=== PATIENT | female | born 1965 | race Caucasian/White ===

== ENCOUNTER → 2016-10-25 | Outpatient (CLI) | payer MEDICARE, OTHER ==
--- NOTE | 2016-10-26 08:53 | NM ---
EXAMINATION TYPE: NM hepatobiliary w EF DATE OF EXAM: 10/25/2016 5:05 PM COMPARISON: NONE INDICATION: Right upper quadrant pain TECHNIQUE: After the intravenous administration of 4.9 mCi Tc 99m Mebrofenin hepatobiliary scintigrap hy is performed. Images were obtained immediately post injection. FINDINGS: There is prompt uptake and excretion of radiotracer by the liver. Extrahepatic ducts are identified at 9 minutes. The gallbladder is visualized within 9 minutes. Small bowel activity is noted within 47 minutes. At one hour 8 ounces of oral ensure plus is given to mimic CCK and gallbladder ejection fraction is c alculated at 51 %, which is in the normal range. (Normal is >35% and less than 80%.). IMPRESSION: 1. Normal hepatobiliary scan
== END | disposition home or self-care (01) ==
LOC: RADNMMAIN 13:06
PROVIDERS: ATTEND Family Medicine
DX: R10.11 Right upper quadrant pain (principal)
CPT/HCPCS: 78226; A9537

== ENCOUNTER 2017-07-04 17:42 | Inpatient (IN) | payer MEDICARE, OTHER ==
[2017-07-04] MEDS ORDERED: ONDANSETRON 4 MG/2 ML VIAL IVP STA (18:14)
[2017-07-04] MEDS ORDERED: MORPHINE SULFATE 4 MG/ML SYRINGE IV STA (18:14)
[2017-07-04] MEDS ORDERED: NITROGLYCERIN OINT 1 INCH/GM PACKET TOPICAL STA (18:14)
[2017-07-04] MEDS ORDERED: MORPHINE SULFATE 2 MG/ML SYRINGE IVP ONE (18:30)
[2017-07-04 18:33] LABS: Anisocytosis Slight; Basophils # (A) 0.1 k/uL (0-0.2); Basophils % (A) 1 %; CH 33.2; CHCM 30.1; Eosinophils # (A) 0.1 k/uL (0-0.7); Eosinophils % (A) 1 %; HCT 31.1 % (34.0-46.0); HDW 2.64; HGB 9.4 gm/dL (11.4-16.0); Hypochromasia Marked; Luc % (Auto) 2; Lymphocytes # (A) 1.6 k/uL (1.0-4.8); Lymphocytes % (A) 27 %; MCH 33.8 pg (25.0-35.0); MCHC 30.3 g/dL (31.0-37.0); MCV 111.4 fL (80.0-100.0); Macrocytosis Marked; Mean Platelet Volume 7.7; Monocytes # (A) 0.3 k/uL (0-1.0); Monocytes % (A) 4 %; Neutrophils # (A) 3.9 k/uL (1.3-7.7); Neutrophils % (A) 66 %; RBC 2.79 m/uL (3.80-5.40); RDW 17.7 % (11.5-15.5); WBC (Perox) 6.25
[2017-07-04 18:38] LABS: Calcium 7.1 mg/dL (8.4-10.2); Potassium 4.4 mmol/L (3.5-5.1); Total Bilirubin 0.2 mg/dL (0.2-1.3); Total Protein 5.3 g/dL (6.3-8.2)
[2017-07-04 18:41] LABS: Partial Thromboplastin Time 22.9 sec (22.0-30.0)
[2017-07-04 18:48] LABS: Creatine Kinase 63 U/L (30-135)
[2017-07-04 18:50] LABS: Manual Review Performed
--- NOTE | 2017-07-04 19:00 | XR ---
EXAMINATION TYPE: XR chest 2V DATE OF EXAM: 07/04/2017 COMPARISON: EXAMINATION TYPE: XR chest 2V DATE OF EXAM: 07/04/2017 COMPARISON: NONE HISTORY: Fluid overload. Chest pain TECHNIQUE: 2 views FINDINGS: There is blunting of left costophrenic angle. There is no heart failure. There is dual lume n right central venous catheter with the tip over the superior vena cava. There is no pneumothorax. T here are chest leads. IMPRESSION: Mild left pleural effusion. No gross heart failure. Normal heart.
[2017-07-04 19:02] LABS: Creatine Kinase MB 1.8 ng/mL (0.0-2.4); Troponin I <0.012 ng/mL (0.000-0.034)
--- NOTE | 2017-07-04 21:18 | ED ---
General Adult HPI - General Chief complaint: Recheck/Abnormal Lab/Rx Stated complaint: Fluid Retention Time Seen by Provider: 07/04/17 18:02 Source: EMS Mode of arrival: EMS Limitations: no limitations - History of Present Illness Initial comments: She has end-stage renal disease, she had her dialysis today she is feeling that or swelling in her arms and legs is more pronounced today she is also complaining about shortness of breath. She is saying she has BEEN off and on for month chest pain gets worse when she takes a deep breath. Denies any fever no chills she is not coughing up any phlegm - Related Data Home Medications Medication Instructions Recorded Confirmed Gabapentin [Neurontin] 300 mg PO BID 06/08/16 07/04/17 Amino Acids/Protein Hydrolys 30 ml PO BID 07/04/17 07/04/17 [Pro-Stat Supplement] Apixaban [Eliquis] 5 mg PO BID 07/04/17 07/04/17 Famotidine 20 mg PO DAILY 07/04/17 07/04/17 Furosemide [Lasix] 80 mg PO TID 07/04/17 07/04/17 INSULIN LISPRO (HumaLOG) [HumaLOG] 8 unit SQ TID 07/04/17 07/04/17 Insulin Detemir [Levemir] 16 unit SQ DAILY 07/04/17 07/04/17 Levothyroxine Sodium [Synthroid] 200 mcg PO DAILY 07/04/17 07/04/17 Loperamide HCl [Loperamide] 2 mg PO Q6H PRN 07/04/17 07/04/17 Metolazone [Zaroxolyn] 5 mg PO DAILY 07/04/17 07/04/17 Metoprolol Tartrate [Lopressor] 25 mg PO BID 07/04/17 07/04/17 Ondansetron HCl [Zofran] 4 mg PO Q6H PRN 07/04/17 07/04/17 Potassium Chloride ER [K-Dur 20] 20 meq PO DAILY 07/04/17 07/04/17 Sodium Bicarbonate 650 mg PO BID 07/04/17 07/04/17 Vitamin B Complex 1 cap PO DAILY 07/04/17 07/04/17 Allergies Allergy/AdvReac Type Severity Reaction Status Date / Time lactose Allergy Nausea & Verified 07/04/17 19:21 Vomiting latex Allergy Rash/Hives Verified 07/04/17 19:21 Review of Systems ROS Statement: Those systems with pertinent positive or pertinent negative responses have been documented in the HPI. ROS Other: All systems not noted in ROS Statement are negative. Past Medical History Past Medical History: Diabetes Mellitus, GERD/Reflux, Hyperlipidemia, Hypertension, Renal Disease, Thyroid Disorder Additional Past Medical History / Comment(s): CURRENT: VOMITING, DIARRHEA, UNABLE TO EAT. INSULIN PUMP. STAGE 4 RENAL DISEASE. DIABETIC NEUROPATHY, BLURRED VISION. ANEMIA. History of Any Multi-Drug Resistant Organisms: None Reported Past Surgical History: Bariatric Surgery, Section, Hysterectomy, Tonsillectomy Additional Past Surgical History / Comment(s): GASTRIC BYPASS. Past Anesthesia/Blood Transfusion Reactions: No Reported Reaction Past Psychological History: Depression Smoking Status: Former smoker Past Alcohol Use History: None Reported Past Drug Use History: None Reported General Exam - General Exam Comments Initial Comments: General: The patient is awake and alert, in no distress, and does appear pale and tired Skin: Skin is warm and dry and no rashes or much she has multiple bruises on the forearms Eye: Pupils are equal, round and reactive to light, extra-ocular movements are intact; there is normal conjunctiva bilaterally. Ears, nose, mouth and throat: There are moist mucous membranes and no oral lesions. Neck: The neck is supple, there is no tenderness or JVD. Cardiovascular: There is a regular rate and rhythm. No murmur, rub or gallop is appreciated. Respiratory: To auscultation bilateral, crease breath sounds at the bases Gastrointestinal: Fairly tender in right upper quadrant area and epigastric area Back: There is no tenderness to palpation in the midline. There is no obvious deformity. Musculoskeletal: Has a diffuse edema of the lower extremity bilateral Neurological: CN II-XII intact, Cranial nerves III through XII are intact. There are no obvious motor or sensory deficits. Coordination appears grossly intact. Speech is normal. Psychiatric: Cooperative, appropriate mood & affect, normal judgment. Limitations: no limitations Course Vital Signs 07/04/17 07/04/17 07/04/17 17:44 18:34 19:20 Temperature 98.2 F 97.7 F Pulse Rate 75 72 65 Respiratory 18 18 18 Rate Blood Pressure 130/78 115/69 139/86 O2 Sat by Pulse 96 96 98 Oximetry 07/04/17 20:11 Temperature Pulse Rate 75 Respiratory 18 Rate Blood Pressure 127/82 O2 Sat by Pulse 96 Oximetry EKG Findings - EKG Comments: EKG Findings:: EKG is normal sinus rhythm ventricular rate is 65 [place] interval is 142 QRS duration is 80 QT/QTc is 428/445-50 mL EKG does not reveal any ST elevation or ST depression Medical Decision Making - Lab Data Result diagrams: 07/04/17 18:08 07/04/17 18:08 Lab Results 07/04/17 07/04/17 07/04/17 Range/Units 18:08 18:08 18:08 WBC 6.0 (3.8-10.6) k/uL RBC 2.79 L (3.80-5.40) m/uL Hgb 9.4 L (11.4-16.0) gm/dL Hct 31.1 L (34.0-46.0) % MCV 111.4 H (80.0-100.0) fL MCH 33.8 (25.0-35.0) pg MCHC 30.3 L (31.0-37.0) g/dL RDW 17.7 H (11.5-15.5) % Plt Count 445 (150-450) k/uL Neutrophils % 66 % Lymphocytes % 27 % Monocytes % 4 % Eosinophils % 1 % Basophils % 1 % Neutrophils # 3.9 (1.3-7.7) k/uL Lymphocytes # 1.6 (1.0-4.8) k/uL Monocytes # 0.3 (0-1.0) k/uL Eosinophils # 0.1 (0-0.7) k/uL Basophils # 0.1 (0-0.2) k/uL Manual Slide Review Performed Hypochromasia Marked Poikilocytosis (manual Present Anisocytosis Slight Anisocytosis (manual) Present Macrocytosis Marked PT (9.0-12.0) sec INR (<1.2) APTT (22.0-30.0) sec D-Dimer (<0.60) mg/L FEU Sodium 133 L (137-145) mmol/L Potassium 4.4 (3.5-5.1) mmol/L Chloride 102 (98-107) mmol/L Carbon Dioxide 23 (22-30) mmol/L Anion Gap 8 mmol/L BUN 54 H (7-17) mg/dL Creatinine 2.34 H (0.52-1.04) mg/dL Est GFR (MDRD) Af Amer 27 (>60 ml/min/1.73 sqM) Est GFR (MDRD) Non-Af 22 (>60 ml/min/1.73 sqM) Glucose 73 L (74-99) mg/dL Calcium 7.1 L (8.4-10.2) mg/dL Magnesium 2.0 (1.6-2.3) mg/dL Total Bilirubin 0.2 (0.2-1.3) mg/dL AST 334 H (14-36) U/L ALT 171 H (9-52) U/L Alkaline Phosphatase 293 H (38-126) U/L Total Creatine Kinase 63 (30-135) U/L CK-MB (CK-2) 1.8 (0.0-2.4) ng/mL CK-MB (CK-2) Rel Index 2.9 Troponin I <0.012 (0.000-0.034) ng/mL Total Protein 5.3 L (6.3-8.2) g/dL Albumin 2.4 L (3.5-5.0) g/dL 07/04/17 Range/Units 18:08 WBC (3.8-10.6) k/uL RBC (3.80-5.40) m/uL Hgb (11.4-16.0) gm/dL Hct (34.0-46.0) % MCV (80.0-100.0) fL MCH (25.0-35.0) pg MCHC (31.0-37.0) g/dL RDW (11.5-15.5) % Plt Count (150-450) k/uL Neutrophils % % Lymphocytes % % Monocytes % % Eosinophils % % Basophils % % Neutrophils # (1.3-7.7) k/uL Lymphocytes # (1.0-4.8) k/uL Monocytes # (0-1.0) k/uL Eosinophils # (0-0.7) k/uL Basophils # (0-0.2) k/uL Manual Slide Review Hypochromasia Poikilocytosis (manual Anisocytosis Anisocytosis (manual) Macrocytosis PT 10.0 (9.0-12.0) sec INR 1.0 (<1.2) APTT 22.9 (22.0-30.0) sec D-Dimer 2.52 H (<0.60) mg/L FEU Sodium (137-145) mmol/L Potassium (3.5-5.1) mmol/L Chloride (98-107) mmol/L Carbon Dioxide (22-30) mmol/L Anion Gap mmol/L BUN (7-17) mg/dL Creatinine (0.52-1.04) mg/dL Est GFR (MDRD) Af Amer (>60 ml/min/1.73 sqM) Est GFR (MDRD) Non-Af (>60 ml/min/1.73 sqM) Glucose (74-99) mg/dL Calcium (8.4-10.2) mg/dL Magnesium (1.6-2.3) mg/dL Total Bilirubin (0.2-1.3) mg/dL AST (14-36) U/L ALT (9-52) U/L Alkaline Phosphatase (38-126) U/L Total Creatine Kinase (30-135) U/L CK-MB (CK-2) (0.0-2.4) ng/mL CK-MB (CK-2) Rel Index Troponin I (0.000-0.034) ng/mL Total Protein (6.3-8.2) g/dL Albumin (3.5-5.0) g/dL Disposition Clinical Impression: End-stage renal disease, Pedal edema, Elevated d-dimer Disposition: ADMITTED IP TO THIS HOSP Condition: Fair Referrals: Ernst Gipson MD [Primary Care Provider] - 1-2 days
[2017-07-04] MEDS ORDERED: NALOXONE 0.4 MG/ML 1 ML VIAL IV PRN (22:00)
[2017-07-04] MEDS ORDERED: ACETAMINOPHEN TAB 325 MG TAB PO PRN (22:00)
[2017-07-04] MEDS ORDERED: LOPERAMIDE 2 MG CAP PO PRN (22:04)
[2017-07-04] MEDS: HYDROmorphone 0.5 MG/0.5 ML SYRINGE IVP PRN (22:20)
--- NOTE | 2017-07-04 22:55 | US ---
EXAMINATION TYPE: US abdomen limited DATE OF EXAM: 07/04/2017 COMPARISON: NONE CLINICAL HISTORY: Pain. RUQ pain elevated LFTS EXAM MEASUREMENTS: Liver Length: 18.1 cm Gallbladder Wall: 0.22 cm CBD: 0.43 cm Right Kidney: 9.2 x 4.7 x 4.2 cm Pancreas: Tail obscured by overlying bowel gas Liver: Heterogenous lobulated Gallbladder: wnl Evidence for sonographic Sprague's sign: No CBD: wnl Right Kidney: No hydronephrosis or masses seen IMPRESSION: No gallstones or dilated ducts. No focal liver defect. Right kidney shows no sign of hydr onephrosis.
[2017-07-05] MEDS: HYDROmorphone 0.5 MG/0.5 ML SYRINGE IVP PRN ×3 (06:26→21:09)
[2017-07-05] MEDS: INSULIN LISPRO (humaLOG) 300 UNIT/3 ML VIAL SQ SCH ×6 (07:50→21:08)
[2017-07-05 07:52] LABS: Glucose,Whole Blood 314 mg/dL (75-99)
[2017-07-05] MEDS ORDERED: NON-FORMULARY DRUG (Amino Acids/Protein Hydrolys [Pro-Stat Supplement] 30 ML) PO SCH (09:00)
[2017-07-05 09:21] LABS: Anisocytosis Slight; CH 33.6; CHCM 29.6; HCT 31.5 % (34.0-46.0); HDW 2.62; HGB 9.1 gm/dL (11.4-16.0); Hypochromasia Marked; MCHC 28.9 g/dL (31.0-37.0); MCV 114.5 fL (80.0-100.0); Macrocytosis Marked; Mean Platelet Volume 8.3; RBC 2.75 m/uL (3.80-5.40); WBC 7.9 k/uL (3.8-10.6)
[2017-07-05 09:28] LABS: ALT 163 U/L (9-52); AST 292 U/L (14-36); Alkaline Phosphatase 293 U/L (38-126); Anion Gap 15 mmol/L; Blood Urea Nitrogen 59 mg/dL (7-17); Carbon Dioxide 17 mmol/L (22-30); Chloride 99 mmol/L (98-107); Glucose 378 mg/dL (74-99); Non-African American GFR(MDRD) 20 (>60 ml/min/1.73 sqM); Potassium 4.6 mmol/L (3.5-5.1); Sodium 131 mmol/L (137-145); Total Bilirubin <0.1 mg/dL (0.2-1.3); Total Protein 5.2 g/dL (6.3-8.2)
[2017-07-05] MEDS: INSULIN DETEMIR 100 UNIT/ML 10 ML VIAL SQ SCH (10:09)
[2017-07-05 10:44] VITALS: BMI 27.6
[2017-07-05] MEDS: HYDROcodone/APAP 10-325MG 1 EACH TAB PO PRN (11:05)
[2017-07-05] MEDS: SODIUM BICARBONATE TAB 650 MG TAB PO SCH ×2 (11:06→21:08)
[2017-07-05] MEDS: METOPROLOL TARTRATE 25 MG TAB PO SCH ×2 (11:06→22:32)
[2017-07-05] MEDS: METOLAZONE 5 MG TAB PO SCH (11:07)
[2017-07-05] MEDS: APIXABAN 5 MG TAB PO SCH ×2 (11:07→21:04)
[2017-07-05] MEDS: B COMPLEX-VIT C-VIT E-ZINC 1 EACH TAB PO SCH (11:07)
[2017-07-05] MEDS: GABAPENTIN 300 MG CAP PO SCH ×2 (11:07→21:04)
[2017-07-05] MEDS: FUROSEMIDE 80 MG TAB PO SCH ×3 (11:07→21:05)
[2017-07-05] MEDS: LEVOTHYROXINE 100 MCG TAB PO SCH (11:07)
[2017-07-05 11:26] LABS: Glucose,Whole Blood 266 mg/dL (75-99)
[2017-07-05] MEDS: FAMOTIDINE 20 MG TAB PO SCH (12:28)
[2017-07-05] MEDS: POTASSIUM CHLORIDE ER 20 MEQ TAB.ER PO SCH (12:28)
[2017-07-05 13:31] LABS: Hemoglobin A1C 5.5 % (4.2-6.1)
[2017-07-05] MEDS ORDERED: HEPARIN SODIUM,PORCINE 5,000 UNIT/ML 1 ML VIAL ONE (16:05)
[2017-07-05] MEDS ORDERED: DEXTROSE 50%-WATER 50 ML SYRINGE IVP ONE (16:45)
[2017-07-05 16:47] LABS: Glucose,Whole Blood 34 mg/dL (75-99)
[2017-07-05 17:17] LABS: Glucose,Whole Blood 109 mg/dL (75-99)
--- NOTE | 2017-07-05 17:37 | P.HPIM ---
History of Present Illness H&P Date: 07/05/17 Chief Complaint: anasarca with significant weight gain. This is a 51-year-old female patient of mine with past medical history of end-stage renal disease on dialysis 3 times weekly, Tuesday and Tuesday, diabetes mellitus, diabetic neuropathy, hypertension and hypertensive cardiovascular disease, hyperlipidemia, hypothyroidism, morbid obesity status post gastric bypass, depression, was recently diagnosed of having a right leg DVT that was diagnosed at [facility] back in 06/19/2017 after she was admitted to the hospital because of weight gain and pleural effusion patient at that time started on Eliquis 5 mg orally twice every day along with a VQ scan that did not show any evidence of acute pulmonary embolism, patient subsequent he was sent to [facility] the [place] for physical therapy rehabilitation, however the patient was not getting appropriate fluid restriction and she continued to gain a lot of weight over the last few weeks while she was there she was seen by nephrology as an outpatient was recommended for her to go for dialysis on a daily basis until she get dialyzed at least 4 L daily basis, however her dialysis center only strictly does Tuesday and they are in the process of transfer the patient to [facility] for dialysis on a daily basis for at least getting her back to her dry weight. Patient presented to the emergency department at [facility] yesterday because of increased anasarca with increased weight gain that has significantly gone up since she was discharged from [facility] and the patient was seen in consultation by nephrology was recommended for the patient to go on dialysis on a daily basis for the next week. Review of Systems Constitutional: Reports anorexia, Reports chronic pain, Reports fatigue, Reports lethargy, Reports weakness, Reports weight gain, Denies chronic headaches Eyes: denies blurred vision, denies bulging eye, denies decreased vision Ears: deny: decreased hearing Ears, nose, mouth and throat: Denies dysphagia, Denies neck lump, Denies swelling in throat, Denies sore throat Cardiovascular: Reports decreased exercise tolerance, Reports dyspnea on exertion, Reports edema, Reports high blood pressure, Reports shortness of breath, Denies chest pain, Denies paroxysmal nocturnal dyspnea, Denies rapid heart beat, Denies syncope Respiratory: Reports cough with sputum, Reports dyspnea, Reports home oxygen, Denies congestion, Denies cough, Denies sleep apnea, Denies snoring, Denies wheezing Gastrointestinal: Reports bloating, Reports nausea, Denies abdominal pain, Denies BRBPR, Denies heartburn, Denies hematemesis, Denies melena, Denies vomiting Genitourinary: Denies dysuria, Denies hematuria Musculoskeletal: Reports gait dysfunction, Denies myalgias Musculoskeletal: bilateral: ankle swelling, elbow swelling, foot swelling, hand swelling, hip swelling, absent: ankle pain, ankle stiffness, elbow pain, elbow stiffness, foot pain, foot stiffness, hand pain, hand stiffness, hip pain, hip stiffness, knee pain, knee stiffness, knee swelling, shoulder pain, shoulder stiffness, shoulder swelling, wrist pain, wrist stiffness, wrist swelling Integumentary: Reports unusual bruising Neurological: Reports gait dysfunction, Reports numbness, Reports weakness Psychiatric: Reports anxiety, Reports depression, Denies sadness/tearfulness, Denies sleep disturbances, Denies suicidal ideation Endocrine: Denies fatigue, Denies weight change Past Medical History Past Medical History: COPD, Diabetes Mellitus, GERD/Reflux, Hyperlipidemia, Hypertension, Liver Disease, Osteoarthritis (OA), Renal Disease, Thyroid Disorder Additional Past Medical History / Comment(s): CURRENT: VOMITING, DIARRHEA, UNABLE TO EAT. INSULIN PUMP. STAGE 4 RENAL DISEASE. DIABETIC NEUROPATHY, BLURRED VISION. ANEMIA. Secondary hyperparathyroidism, hypothyroidism, hyperlipidemia, hypertension and hypertensive cardiovascular disease, end-stage renal disease on hemodialysis, peptic ulcer disease status post partial gastrectomy. 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 Singh in [place]. Past Anesthesia/Blood Transfusion Reactions: No Reported Reaction Past Psychological History: Depression Smoking Status: Former smoker (patient smokes about a pack every day since she was 18-year-old and she quit degenerative 19.) Past Alcohol Use History: None Reported Additional Past Alcohol Use History / Comment(s): SMOKED MANY YEARS, LESS THAN HALF PPD. Past Drug Use History: None Reported - Past Family History Mother Family Medical History: COPD, Hypertension, Renal Disease, Rheumatoid Arthritis (RA) (mother is 89-year-old with history of hypertension, COPD, rheumatoid arthritis.) Father Family Medical History: Cancer, COPD (father at age of 55 from COPD as well as adenocarcinoma.) Brother(s) Family Medical History: No Reported History (patient has one brother who is a nurse in [place].) Daughter(s) Family Medical History: No Reported History (patient has a daughter no major medical problems.) Son(s) Family Medical History: No Reported History (patient has a son no major medical problems.) Medications and Allergies Home Medications Medication Instructions Recorded Confirmed Type Gabapentin [Neurontin] 300 mg PO BID 06/08/16 07/04/17 History Amino Acids/Protein Hydrolys 30 ml PO BID 07/04/17 07/04/17 History [Pro-Stat Supplement] Apixaban [Eliquis] 5 mg PO BID 07/04/17 07/04/17 History Famotidine 20 mg PO DAILY 07/04/17 07/04/17 History Furosemide [Lasix] 80 mg PO TID 07/04/17 07/04/17 History INSULIN LISPRO (HumaLOG) [HumaLOG] 8 unit SQ TID 07/04/17 07/04/17 History Insulin Detemir [Levemir] 16 unit SQ DAILY 07/04/17 07/04/17 History Levothyroxine Sodium [Synthroid] 200 mcg PO DAILY 07/04/17 07/04/17 History Loperamide HCl [Loperamide] 2 mg PO Q6H PRN 07/04/17 07/04/17 History Metolazone [Zaroxolyn] 5 mg PO DAILY 07/04/17 07/04/17 History Metoprolol Tartrate [Lopressor] 25 mg PO BID 07/04/17 07/04/17 History Ondansetron HCl [Zofran] 4 mg PO Q6H PRN 07/04/17 07/04/17 History Potassium Chloride ER [K-Dur 20] 20 meq PO DAILY 07/04/17 07/04/17 History Sodium Bicarbonate 650 mg PO BID 07/04/17 07/04/17 History Vitamin B Complex 1 cap PO DAILY 07/04/17 07/04/17 History Allergies Allergy/AdvReac Type Severity Reaction Status Date / Time latex Allergy Rash/Hives Verified 07/04/17 19:21 Physical Exam Vitals: Vital Signs Temp Pulse Pulse Resp BP BP Pulse Ox 07/05/17 07:57 64 18 07/05/17 07:00 98.3 F 64 18 162/91 98 07/04/17 23:34 98.4 F 18 171/92 100 07/04/17 22:22 68 18 132/76 99 07/04/17 21:41 60 18 121/66 99 07/04/17 20:11 75 18 127/82 96 07/04/17 19:20 97.7 F 65 18 139/86 98 07/04/17 18:34 72 18 115/69 96 07/04/17 17:44 98.2 F 75 18 130/78 96 Intake and Output 07/04/17 07/05/17 07/05/17 22:59 06:59 14:59 Other: Voiding Method Toilet Toilet # Voids 2 1 Weight 80.3 kg 75.5 kg 75.5 kg Patient Weight 07/06/17 06:59 Weight 75.5 kg - Constitutional General appearance: average body habitus, mild distress - EENT Eyes: anicteric sclerae, EOMI, PERRLA, no ptosis, no scleral icterus, normal appearance ENT: hearing grossly normal, NA/AT, normal oropharynx, no thrush Ears: bilateral: normal - Neck Neck: no lymphadenopathy, normal ROM, no rigidity, no stridor, no thyromegaly Carotids: bilateral: upstroke normal Thyroid: bilateral: normal size - Respiratory Respiratory: bilateral: diminished, rhonchi, prolonged expiration, negative: dullness, rales, wheezing - Cardiovascular Rhythm: regular Heart sounds: normal: S1, S2 Abnormal Heart Sounds: systolic murmur, no rub, S3 Gallop, no click - Gastrointestinal General gastrointestinal: normal bowel sounds, soft, no splenomegaly, no tenderness, no umbilical hernia, no ventral hernia - Integumentary Integumentary: normal, normal turgor - Neurologic Neurologic: CNII-XII intact - Musculoskeletal Musculoskeletal: generalized weakness - Psychiatric Psychiatric: A&O x's 3, appropriate affect, intact judgment & insight Results CBC & Chem 7: 07/05/17 08:55 07/05/17 08:55 Labs: Abnormal Lab Results - Last 24 Hours (Table) 07/04/17 07/04/17 07/04/17 Range/Units 18:08 18:08 18:08 RBC 2.79 L (3.80-5.40) m/uL Hgb 9.4 L (11.4-16.0) gm/dL Hct 31.1 L (34.0-46.0) % MCV 111.4 H (80.0-100.0) fL MCHC 30.3 L (31.0-37.0) g/dL RDW 17.7 H (11.5-15.5) % D-Dimer 2.52 H (<0.60) mg/L FEU Sodium 133 L (137-145) mmol/L Carbon Dioxide (22-30) mmol/L BUN 54 H (7-17) mg/dL Creatinine 2.34 H (0.52-1.04) mg/dL Glucose 73 L (74-99) mg/dL POC Glucose (mg/dL) (75-99) mg/dL Calcium 7.1 L (8.4-10.2) mg/dL Total Bilirubin (0.2-1.3) mg/dL AST 334 H (14-36) U/L ALT 171 H (9-52) U/L Alkaline Phosphatase 293 H (38-126) U/L Total Protein 5.3 L (6.3-8.2) g/dL Albumin 2.4 L (3.5-5.0) g/dL 07/05/17 07/05/17 07/05/17 Range/Units 07:37 08:55 08:55 RBC 2.75 L (3.80-5.40) m/uL Hgb 9.1 L (11.4-16.0) gm/dL Hct 31.5 L (34.0-46.0) % MCV 114.5 H (80.0-100.0) fL MCHC 28.9 L (31.0-37.0) g/dL RDW 18.0 H (11.5-15.5) % D-Dimer (<0.60) mg/L FEU Sodium 131 L (137-145) mmol/L Carbon Dioxide 17 L (22-30) mmol/L BUN 59 H (7-17) mg/dL Creatinine 2.60 H (0.52-1.04) mg/dL Glucose 378 H (74-99) mg/dL POC Glucose (mg/dL) 314 H (75-99) mg/dL Calcium 7.0 L (8.4-10.2) mg/dL Total Bilirubin <0.1 L (0.2-1.3) mg/dL AST 292 H (14-36) U/L ALT 163 H (9-52) U/L Alkaline Phosphatase 293 H (38-126) U/L Total Protein 5.2 L (6.3-8.2) g/dL Albumin 2.4 L (3.5-5.0) g/dL 07/05/17 Range/Units 11:15 RBC (3.80-5.40) m/uL Hgb (11.4-16.0) gm/dL Hct (34.0-46.0) % MCV (80.0-100.0) fL MCHC (31.0-37.0) g/dL RDW (11.5-15.5) % D-Dimer (<0.60) mg/L FEU Sodium (137-145) mmol/L Carbon Dioxide (22-30) mmol/L BUN (7-17) mg/dL Creatinine (0.52-1.04) mg/dL Glucose (74-99) mg/dL POC Glucose (mg/dL) 266 H (75-99) mg/dL Calcium (8.4-10.2) mg/dL Total Bilirubin (0.2-1.3) mg/dL AST (14-36) U/L ALT (9-52) U/L Alkaline Phosphatase (38-126) U/L Total Protein (6.3-8.2) g/dL Albumin (3.5-5.0) g/dL Thrombosis Risk Factor Assmnt - DVT/VTE Prophylaxis DVT/VTE Prophylaxis: Pharmacologic Prophylaxis ordered, Mechanical Prophylaxis ordered - Choose All That Apply Each Factor Represents 1 point: Age 41-60 years, Swollen legs (current), Varicose veins Thrombosis Risk Factor Assessment Total Risk Factor Score: 3 Thrombosis Risk Factor Assessment Level: Moderate Risk Assessment and Plan Plan: Assessment and plan: 1. Anasarca with acute on chronic diastolic heart failure with significant fluid overload. Continue hemodialysis, continue patient on Lasix 80 mg orally twice every day, continue Zaroxolyn 5 mg orally once every day, monitor the patient's electrolytes and regular basis since including magnesium Tanner monitor the patient with, continue fluid restriction, patient will continue dialysis on a daily basis for the next few days. 2. Recent right lower extremity DVT. Continue Eliquis 5 mg orally twice every day. 3. History of the chronic diastolic heart failure. Continue treatment as in paragraph #1 4. Diabetes mellitus type 2. Continue Levemir 16 units at bedtime along with a sliding scale insulin, continue consistent carbohydrate diet, continue to monitor the patient blood glucose before each meal and at bedtime. 5. Diabetic polyneuropathy. Continue patient on gabapentin 300 mg orally twice every day. 6. Hypothyroidism. Continue levothyroxine 200 mg orally once every day. 7. Vitamin D deficiency. Continue patient on vitamin D supplement. 8. Hypertension and hypertensive cardiovascular disease. Continue patient on Lopressor 25 mg orally twice every day. 9. Secondary hyperparathyroidism. Stable at this time. 10. Moderate to severe protein calorie medication. Continue with current protein supplement. 11. Anxiety disorder. Stable. 12. Depressive disorder. Patient will need to be started on antidepressant. 13. Medical debility. Physical therapy evaluation patient will require physical therapy and outpatient therapy. 14. Chronic diarrhea. Continue patient on Questran and loperamide as needed. 15. DVT prophylaxis. Continue Eliquis 5 mg orally twice every day. 16. GI prophylaxis. Continue Pepcid 20 mg orally once every day. 17. Hyponatremia secondary to hypervolemia. Continue aggressive diuresis and daily hemodialysis. 18. Full code 19. Admit to inpatient. Estimated length of stay 2 midnights.
[2017-07-05] MEDS ORDERED: DARBEPOETIN ALFA 40 MCG/0.4 ML SYRINGE SQ SCH (19:30)
[2017-07-05 20:00] LABS: Hepatitis B Surface Antibody Non-Reactive (Non-Reactive)
[2017-07-05 20:35] LABS: Glucose,Whole Blood 74 mg/dL (75-99)
--- NOTE | 2017-07-05 21:04 | CONS ---
CONSULTATION DATE OF SERVICE: Today, 07/05/2017. REASON FOR CONSULT: End-stage renal disease. HISTORY OF PRESENT ILLNESS: Patient is a 51-year-old female with end-stage renal disease, on hemodialysis on a Tuesday, Tuesday, Tuesday schedule at the [facility]. She was admitted to the hospital with increased lower extremity edema and weeping from her arms. The patient is unable to go for extra treatments, since at the [facility], there is only a Tuesday, Tuesday, Tuesday schedule. The patient denies any chest pain. She denies any fever or chills. She has had some cough on and off and she has had multiple admissions at the [facility] for of fluid retention and worsening edema. PAST MEDICAL HISTORY: Type 2 diabetes, hyperlipidemia, hypertension, end-stage renal disease, retinopathy. PAST SURGICAL HISTORY: Bariatric surgery, , hysterectomy, tonsillectomy, gastric bypass, depression. SOCIAL HISTORY: Patient is an ex-smoker. No history of drug abuse or alcohol abuse. She was at [facility] and patient hopes to go home after this discharge. MEDICATIONS: Prior to admission included: 1. Neurontin. 2. Eliquis. 3. Pepcid. 4. Lasix. 5. Insulin. 6. Synthroid. 7. Zaroxolyn. 8. Lopressor. 9. Zofran. 10.Potassium. 11.Sodium bicarb. 12.Vitamin B. ALLERGIES: INCLUDE LACTOSE AND LATEX. REVIEW OF SYSTEMS: As per HPI. Other systems negative. EXAMINATION: Patient is comfortable, awake. She is not in any acute distress. Blood pressure is 125/82, heart rate 76 per minute. Patient is afebrile. HEART: S1, S2. LUNGS: Bilateral breath sounds are heard. ABDOMEN: Soft, nontender. Lower extremities show edema 3+ upper and lower extremities bilaterally. The patient has multiple dressings in both her upper extremities from wounds from weeping and scrapes. [employer]: Grossly intact. LABS: Showsodium 131, potassium 4.6. Hemoglobin 9.1 g/dL. ASSESSMENT: 1. End-stage renal disease, on hemodialysis on a Tuesday, Tuesday, Tuesday schedule at the [facility] via internal jugular PermCath. The patient does have a left arm arteriovenous fistula which is not ready for use yet. 2. Severe edema, upper and lower extremities. Will continue to challenge and dialyze patient on a daily basis. 3. Anemia of chronic disease. Will maintain patient on Aranesp. PLAN: Daily dialysis and add Aranesp and try for a goal UF of about 4 L with every treatment. MMODL / IJN: [id number] /
[2017-07-06 02:56] LABS: Glucose,Whole Blood 180 mg/dL (75-99)
[2017-07-06] MEDS: HYDROmorphone 0.5 MG/0.5 ML SYRINGE IVP PRN ×4 (04:41→21:32)
[2017-07-06 07:17] LABS: Glucose,Whole Blood 242 mg/dL (75-99)
[2017-07-06] MEDS: POTASSIUM CHLORIDE ER 20 MEQ TAB.ER PO SCH (08:03)
[2017-07-06] MEDS: LEVOTHYROXINE 100 MCG TAB PO SCH (08:03)
[2017-07-06] MEDS: METOLAZONE 5 MG TAB PO SCH (08:03)
[2017-07-06] MEDS: METOPROLOL TARTRATE 25 MG TAB PO SCH ×2 (08:03→21:27)
[2017-07-06] MEDS: B COMPLEX-VIT C-VIT E-ZINC 1 EACH TAB PO SCH (08:03)
[2017-07-06] MEDS: SODIUM BICARBONATE TAB 650 MG TAB PO SCH (08:03)
[2017-07-06] MEDS: APIXABAN 5 MG TAB PO SCH ×2 (08:03→21:27)
[2017-07-06] MEDS: GABAPENTIN 300 MG CAP PO SCH ×2 (08:03→21:26)
[2017-07-06] MEDS: FAMOTIDINE 20 MG TAB PO SCH (08:03)
[2017-07-06] MEDS: FUROSEMIDE 80 MG TAB PO SCH ×3 (08:03→21:27)
[2017-07-06] MEDS: INSULIN LISPRO (humaLOG) 300 UNIT/3 ML VIAL SQ SCH ×5 (08:08→21:22)
[2017-07-06] MEDS: INSULIN DETEMIR 100 UNIT/ML 10 ML VIAL SQ SCH (08:16)
[2017-07-06 08:27] LABS: Anisocytosis Slight; CH 33.3; CHCM 29.1; HDW 2.52; HGB 8.6 gm/dL (11.4-16.0); Hypochromasia Marked; MCHC 28.7 g/dL (31.0-37.0); MCV 115.2 fL (80.0-100.0); Macrocytosis Marked; Mean Platelet Volume 7.7; RBC 2.61 m/uL (3.80-5.40); RDW 17.1 % (11.5-15.5)
[2017-07-06 08:36] LABS: Calcium 6.7 mg/dL (8.4-10.2); Potassium 5.2 mmol/L (3.5-5.1); Total Bilirubin 0.1 mg/dL (0.2-1.3); Total Protein 4.8 g/dL (6.3-8.2)
[2017-07-06 11:41] LABS: Glucose,Whole Blood 226 mg/dL (75-99)
[2017-07-06] MEDS: AMMONIUM LACTATE 12% LOTION 225 GM BTL TOPICAL SCH ×2 (12:05→21:27)
--- NOTE | 2017-07-06 12:34 | P.PN ---
Subjective Progress Note Date: 07/06/17 This is a 51-year-old female patient of [facility] with past medical history of end-stage renal disease on dialysis 3 times weekly, Tuesday and Tuesday, diabetes mellitus, diabetic neuropathy, hypertension and hypertensive cardiovascular disease, hyperlipidemia, hypothyroidism, morbid obesity status post gastric bypass, depression, was recently diagnosed of having a right leg DVT that was diagnosed at [facility] back in 06/19/2017 after she was admitted to the hospital because of weight gain and pleural effusion patient at that time started on Eliquis 5 mg orally twice every day along with a VQ scan that did not show any evidence of acute pulmonary embolism, patient subsequent he was sent to [facility] [place] for physical therapy rehabilitation, however the patient was not getting appropriate fluid restriction and she continued to gain a lot of weight over the last few weeks while she was there she was seen by nephrology as an outpatient was recommended for her to go for dialysis on a daily basis until she get dialyzed at least 4 L daily basis, however her dialysis center only strictly does Tuesday and they are in the process of transfer the patient to [place] for dialysis on a daily basis for at least getting her back to her dry weight. Patient presented to the emergency department at [facility] yesterday because of increased anasarca with increased weight gain that has significantly gone up since she was discharged from [facility] and the patient was seen in consultation by nephrology was recommended for the patient to go on dialysis on a daily basis for the next week. 07/06: Patient is followed by nephrology and for now, hemodialysis as scheduled daily. Lac-Hydrin will be added for dry legs and feet. Patient is requesting Tums. Objective - Vital Signs Vital signs: Vital Signs Temp 97.7 F 07/06/17 07:00 Pulse 67 07/06/17 07:00 Resp 16 07/06/17 07:00 BP 174/91 07/06/17 07:00 Pulse Ox 97 07/06/17 07:00 Intake & Output 07/05/17 07/06/17 07/06/17 18:59 06:59 18:59 Intake Total 60 350 Balance 60 350 Weight 75.5 kg Intake: Oral 60 350 Other: Voiding Method Toilet Toilet # Voids 0 0 - Exam General appearance: average body habitus, mild distress - EENT Eyes: anicteric sclerae, EOMI, PERRLA, no ptosis, no scleral icterus, normal appearance ENT: hearing grossly normal, NA/AT, normal oropharynx, no thrush Ears: bilateral: normal - Neck Neck: no lymphadenopathy, normal ROM, no rigidity, no stridor, no thyromegaly Carotids: bilateral: upstroke normal Thyroid: bilateral: normal size - Respiratory Respiratory: bilateral: diminished, rhonchi, prolonged expiration, negative: dullness, rales, wheezing - Cardiovascular Rhythm: regular Heart sounds: normal: S1, S2 Abnormal Heart Sounds: systolic murmur, no rub, S3 Gallop, no click - Gastrointestinal General gastrointestinal: normal bowel sounds, soft, no splenomegaly, no tenderness, no umbilical hernia, no ventral hernia - Integumentary Integumentary: normal, normal turgor - Neurologic Neurologic: CNII-XII intact - Musculoskeletal Musculoskeletal: generalized weakness - Psychiatric Psychiatric: A&O x's 3, appropriate affect, intact judgment & insight - Labs CBC & Chem 7: 07/06/17 07:22 07/06/17 07:22 Labs: Abnormal Lab Results - Last 24 Hours (Table) 07/05/17 07/05/17 07/05/17 Range/Units 08:55 08:55 11:15 RBC 2.75 L (3.80-5.40) m/uL Hgb 9.1 L (11.4-16.0) gm/dL Hct 31.5 L (34.0-46.0) % MCV 114.5 H (80.0-100.0) fL MCHC 28.9 L (31.0-37.0) g/dL RDW 18.0 H (11.5-15.5) % Sodium 131 L (137-145) mmol/L Carbon Dioxide 17 L (22-30) mmol/L BUN 59 H (7-17) mg/dL Creatinine 2.60 H (0.52-1.04) mg/dL Glucose 378 H (74-99) mg/dL POC Glucose (mg/dL) 266 H (75-99) mg/dL Calcium 7.0 L (8.4-10.2) mg/dL Total Bilirubin <0.1 L (0.2-1.3) mg/dL AST 292 H (14-36) U/L ALT 163 H (9-52) U/L Alkaline Phosphatase 293 H (38-126) U/L Total Protein 5.2 L (6.3-8.2) g/dL Albumin 2.4 L (3.5-5.0) g/dL 07/05/17 07/05/17 07/05/17 Range/Units 16:40 17:15 20:23 RBC (3.80-5.40) m/uL Hgb (11.4-16.0) gm/dL Hct (34.0-46.0) % MCV (80.0-100.0) fL MCHC (31.0-37.0) g/dL RDW (11.5-15.5) % Sodium (137-145) mmol/L Carbon Dioxide (22-30) mmol/L BUN (7-17) mg/dL Creatinine (0.52-1.04) mg/dL Glucose (74-99) mg/dL POC Glucose (mg/dL) 34 L 109 H 74 L (75-99) mg/dL Calcium (8.4-10.2) mg/dL Total Bilirubin (0.2-1.3) mg/dL AST (14-36) U/L ALT (9-52) U/L Alkaline Phosphatase (38-126) U/L Total Protein (6.3-8.2) g/dL Albumin (3.5-5.0) g/dL 07/06/17 07/06/17 Range/Units 02:33 06:55 RBC (3.80-5.40) m/uL Hgb (11.4-16.0) gm/dL Hct (34.0-46.0) % MCV (80.0-100.0) fL MCHC (31.0-37.0) g/dL RDW (11.5-15.5) % Sodium (137-145) mmol/L Carbon Dioxide (22-30) mmol/L BUN (7-17) mg/dL Creatinine (0.52-1.04) mg/dL Glucose (74-99) mg/dL POC Glucose (mg/dL) 180 H 242 H (75-99) mg/dL Calcium (8.4-10.2) mg/dL Total Bilirubin (0.2-1.3) mg/dL AST (14-36) U/L ALT (9-52) U/L Alkaline Phosphatase (38-126) U/L Total Protein (6.3-8.2) g/dL Albumin (3.5-5.0) g/dL Assessment and Plan Plan: 1. Anasarca with acute on chronic diastolic heart failure with significant fluid overload. Continue hemodialysis, continue patient on Lasix 80 mg orally twice every day, continue Zaroxolyn 5 mg orally once every day, monitor the patient's electrolytes and regular basis since including magnesium Tanner monitor the patient with, continue fluid restriction, patient will continue dialysis on a daily basis for the next few days. 2. Recent right lower extremity DVT. Continue Eliquis 5 mg orally twice every day. 3. History of the chronic diastolic heart failure. Continue treatment as in paragraph #1 4. Diabetes mellitus type 2. Continue Levemir 16 units at bedtime along with a sliding scale insulin, continue consistent carbohydrate diet, continue to monitor the patient blood glucose before each meal and at bedtime. 5. Diabetic polyneuropathy. Continue patient on gabapentin 300 mg orally twice every day. 6. Hypothyroidism. Continue levothyroxine 200 mg orally once every day. 7. Vitamin D deficiency. Continue patient on vitamin D supplement. 8. Hypertension and hypertensive cardiovascular disease. Continue patient on Lopressor 25 mg orally twice every day. 9. Secondary hyperparathyroidism. Stable at this time. 10. Moderate to severe protein calorie medication. Continue with current protein supplement. 11. Anxiety disorder. Stable. 12. Depressive disorder. Patient will need to be started on antidepressant. 13. Medical debility. Physical therapy evaluation patient will require physical therapy and outpatient therapy. 14. Chronic diarrhea. Continue patient on Questran and loperamide as needed. 15. DVT prophylaxis. Continue Eliquis 5 mg orally twice every day. 16. GI prophylaxis. Continue Pepcid 20 mg orally once every day. 17. Hyponatremia secondary to hypervolemia. Continue aggressive diuresis and daily hemodialysis. 18. Full code Discharge plan: Patient is planning to go home versus back to the [facility]. She is in need of a hospital bed as positioning is not obtainable with an ordinary bed to alleviate pain and we are also planning to order a wheelchair for her. Case management is following. Impression and plan of care have been directed as dictated by the signing physician. Ave Jin nurse practitioner acting as scribe for signing physician.
--- NOTE | 2017-07-06 14:31 | PN ---
PROGRESS NOTE Patient is seen for followup for end-stage renal disease and fluid overload. She was dialyzed yesterday. We had about 4L of ultrafiltration yesterday. Patient will be dialyzed again today with goal UF of about 4 to 4.5 L. She states she is feeling slightly better. I do see a lot of water and juice sitting at her bedside. I have discussed with the patient regarding fluid restriction, particularly as she does not have significant urine output now. PHYSICAL EXAMINATION: On examination today, blood pressure is 174/91, earlier it was 138/78, heart rate 67 per minute. Patient is afebrile. Examination of the heart S1, S2. Examination of the lungs, decreased breath sounds bases. No crackles or wheezing is heard. Abdomen is soft, nontender. Examination of the lower extremity shows edema 3+ bilaterally upper and lower extremities. LABS: Sodium 128, potassium 5.2, hemoglobin 8.6, albumin 2.2. ASSESSMENT: 1. End-stage renal disease, on hemodialysis on a Tuesday, Tuesday, Tuesday schedule at the [facility]. The patient is looking into changing to the [facility] as she will not be going to [facility] anymore and wants to be discharged home. 2. Fluid overload and significant edema, currently on a daily schedule for dialysis. 3. Elevated liver enzymes, not on any statins. 4. Mild hyperkalemia. Will discontinue the potassium supplementation. 5. Anemia of chronic disease. No active bleeding noted. 6. A Port-A-Cath to obtained on oral sodium bicarb, which most likely we will need to discontinue as the patient has significant edema. We can increase the bicarb on the machine as outpatient to control her metabolic acidosis. PLAN: Continue daily dialysis/ultrafiltration. DC sodium bicarb and DC potassium. MMODL / IJN: [id number] /
[2017-07-06] MEDS ORDERED: FUROSEMIDE 10 MG/ML 10 ML VIAL IV STA (14:47)
[2017-07-06 15:53] LABS: Glucose,Whole Blood 74 mg/dL (75-99)
[2017-07-06 16:59] LABS: Glucose,Whole Blood 70 mg/dL (75-99)
[2017-07-06] MEDS: CALCIUM CARBONATE 500 MG CHEWABLE PO PRN (17:34)
[2017-07-06 20:46] LABS: Glucose,Whole Blood 106 mg/dL (75-99)
[2017-07-07] MEDS: HYDROmorphone 0.5 MG/0.5 ML SYRINGE IVP PRN ×5 (02:09→21:25)
[2017-07-07 07:32] LABS: Anisocytosis Slight; CH 34.5; CHCM 30.1; HCT 30.3 % (34.0-46.0); HDW 2.61; HGB 8.7 gm/dL (11.4-16.0); Hypochromasia Marked; MCH 33.3 pg (25.0-35.0); MCHC 28.8 g/dL (31.0-37.0); Macrocytosis Marked; Mean Platelet Volume 8.2; RBC 2.62 m/uL (3.80-5.40); RDW 17.6 % (11.5-15.5); WBC 4.8 k/uL (3.8-10.6)
[2017-07-07 07:32] LABS: Glucose,Whole Blood 395 mg/dL (75-99)
[2017-07-07 07:40] LABS: MCV 115.7 fL (80.0-100.0)
[2017-07-07] MEDS: INSULIN LISPRO (humaLOG) 300 UNIT/3 ML VIAL SQ SCH ×5 (07:43→21:28)
[2017-07-07] MEDS: INSULIN DETEMIR 100 UNIT/ML 10 ML VIAL SQ SCH (07:44)
[2017-07-07] MEDS: CALCIUM CARBONATE 500 MG CHEWABLE PO PRN (07:44)
[2017-07-07] MEDS: LEVOTHYROXINE 100 MCG TAB PO SCH (07:45)
[2017-07-07] MEDS: FUROSEMIDE 80 MG TAB PO SCH ×3 (07:49→21:28)
[2017-07-07] MEDS: B COMPLEX-VIT C-VIT E-ZINC 1 EACH TAB PO SCH (07:49)
[2017-07-07] MEDS: FAMOTIDINE 20 MG TAB PO SCH (07:50)
[2017-07-07] MEDS: GABAPENTIN 300 MG CAP PO SCH ×2 (07:50→21:27)
[2017-07-07] MEDS: METOPROLOL TARTRATE 25 MG TAB PO SCH ×2 (07:50→07:57)
[2017-07-07] MEDS: APIXABAN 5 MG TAB PO SCH ×2 (07:51→21:28)
[2017-07-07] MEDS: AMMONIUM LACTATE 12% LOTION 225 GM BTL TOPICAL SCH ×2 (07:56→21:28)
[2017-07-07 07:57] LABS: Calcium 6.9 mg/dL (8.4-10.2); Potassium 4.9 mmol/L (3.5-5.1); Total Bilirubin 0.2 mg/dL (0.2-1.3); Total Protein 4.8 g/dL (6.3-8.2)
[2017-07-07] MEDS: METOLAZONE 5 MG TAB PO SCH (07:57)
[2017-07-07] MEDS ORDERED: HEPARIN SODIUM,PORCINE 5,000 UNIT/ML 1 ML VIAL ONE (09:34)
--- NOTE | 2017-07-07 11:28 | P.PN ---
Subjective Patient is seen in follow-up for end-stage renal disease. She is maintained on hemodialysis on a Tuesday schedule via right chest permacath. She has a maturing left upper extremity AV fistula. Patient was complaining of significant swelling in her lower extremities and came to the hospital. She's been undergoing daily dialysis with 4 L of ultrafiltration. She's been tolerating the treatments well. Swelling is gradually improving. Oral intake is fair. No vomiting or diarrhea. Vital signs are stable. General: The patient appeared well nourished and normally developed. HEENT: Head exam is unremarkable. Neck is without jugular venous distension. LUNGS: Lungs are clear to auscultation and percussion. Breath sounds decreased. HEART: Rate and Rhythm are regular. First and second heart sounds normal. No murmurs, rubs or gallops. ABDOMEN: Abdominal exam reveals normal bowel sounds. Non-tender and non- distended. EXTREMITITES: 3+ edema. Objective - Vital Signs Vital signs: Vital Signs Temp 98.2 F 07/07/17 07:00 Pulse 63 07/07/17 08:00 Resp 18 07/07/17 08:00 BP 150/80 07/07/17 07:00 Pulse Ox 95 07/07/17 07:00 Intake & Output 07/06/17 07/07/17 07/07/17 18:59 06:59 18:59 Intake Total 240 Output Total 1 Balance 240 -1 Weight 73.5 kg Intake: Oral 240 Output: Stool 1 Other: Voiding Method Toilet Toilet Toilet # Voids 3 2 # Bowel Movements 1 - Labs CBC & Chem 7: 07/07/17 07:04 07/07/17 07:04 Labs: Abnormal Lab Results - Last 24 Hours (Table) 07/06/17 07/06/17 07/06/17 Range/Units 11:14 15:52 16:58 RBC (3.80-5.40) m/uL Hgb (11.4-16.0) gm/dL Hct (34.0-46.0) % MCV (80.0-100.0) fL MCHC (31.0-37.0) g/dL RDW (11.5-15.5) % Sodium (137-145) mmol/L BUN (7-17) mg/dL Creatinine (0.52-1.04) mg/dL Glucose (74-99) mg/dL POC Glucose (mg/dL) 226 H 74 L 70 L (75-99) mg/dL Calcium (8.4-10.2) mg/dL AST (14-36) U/L ALT (9-52) U/L Alkaline Phosphatase (38-126) U/L Total Protein (6.3-8.2) g/dL Albumin (3.5-5.0) g/dL 07/06/17 07/07/17 07/07/17 Range/Units 20:44 07:01 07:04 RBC 2.62 L (3.80-5.40) m/uL Hgb 8.7 L (11.4-16.0) gm/dL Hct 30.3 L (34.0-46.0) % MCV 115.7 H (80.0-100.0) fL MCHC 28.8 L (31.0-37.0) g/dL RDW 17.6 H (11.5-15.5) % Sodium (137-145) mmol/L BUN (7-17) mg/dL Creatinine (0.52-1.04) mg/dL Glucose (74-99) mg/dL POC Glucose (mg/dL) 106 H 395 H (75-99) mg/dL Calcium (8.4-10.2) mg/dL AST (14-36) U/L ALT (9-52) U/L Alkaline Phosphatase (38-126) U/L Total Protein (6.3-8.2) g/dL Albumin (3.5-5.0) g/dL 07/07/17 Range/Units 07:04 RBC (3.80-5.40) m/uL Hgb (11.4-16.0) gm/dL Hct (34.0-46.0) % MCV (80.0-100.0) fL MCHC (31.0-37.0) g/dL RDW (11.5-15.5) % Sodium 129 L (137-145) mmol/L BUN 48 H (7-17) mg/dL Creatinine 2.39 H (0.52-1.04) mg/dL Glucose 446 H (74-99) mg/dL POC Glucose (mg/dL) (75-99) mg/dL Calcium 6.9 L (8.4-10.2) mg/dL AST 586 H (14-36) U/L ALT 232 H (9-52) U/L Alkaline Phosphatase 366 H (38-126) U/L Total Protein 4.8 L (6.3-8.2) g/dL Albumin 2.2 L (3.5-5.0) g/dL Assessment and Plan Plan: Assessment: #1. End-stage renal disease maintained on hemodialysis on a Tuesday schedule via right chest permacath. She has a maturing left upper extremity AV fistula. #2. Volume overload undergoing daily dialysis with ultrafiltration. #3. Hypocalcemia secondary to hypoalbuminemia. Her corrected calcium is in the normal range. #4. Insulin-dependent diabetes mellitus. #5. Anemia of chronic kidney disease maintained on Aranesp. #6. Chronic kidney disease mineral bone disease maintained on Tums. Plan: Ultrafiltration only today with goal 5 L. Hemodialysis tomorrow with goal 4-5 L ultrafiltration. Potential discharge tomorrow if outpatient dialysis at the [place] [facility] set up. Check phosphorus level. Maintain low salt and fluid restricted diet.
[2017-07-07 11:35] LABS: Glucose,Whole Blood 234 mg/dL (75-99)
--- NOTE | 2017-07-07 12:20 | P.PN ---
Subjective Progress Note Date: 07/07/17 This is a 51-year-old female patient of [facility] with past medical history of end-stage renal disease on dialysis 3 times weekly, Tuesday and Tuesday, diabetes mellitus, diabetic neuropathy, hypertension and hypertensive cardiovascular disease, hyperlipidemia, hypothyroidism, morbid obesity status post gastric bypass, depression, was recently diagnosed of having a right leg DVT that was diagnosed at [facility] back in 06/19/2017 after she was admitted to the hospital because of weight gain and pleural effusion patient at that time started on Eliquis 5 mg orally twice every day along with a VQ scan that did not show any evidence of acute pulmonary embolism, patient subsequent he was sent to [facility] the [place] for physical therapy rehabilitation, however the patient was not getting appropriate fluid restriction and she continued to gain a lot of weight over the last few weeks while she was there she was seen by nephrology as an outpatient was recommended for her to go for dialysis on a daily basis until she get dialyzed at least 4 L daily basis, however her dialysis center only strictly does Tuesday and they are in the process of transfer the patient to [place] for dialysis on a daily basis for at least getting her back to her dry weight. Patient presented to the emergency department at [facility] yesterday because of increased anasarca with increased weight gain that has significantly gone up since she was discharged from [facility] and the patient was seen in consultation by nephrology was recommended for the patient to go on dialysis on a daily basis for the next week. 07/06: Patient is followed by nephrology and for now, hemodialysis as scheduled daily. Lac-Hydrin will be added for dry legs and feet. Patient is requesting Tums. 07/07: Patient is undergoing hemodialysis this morning. She is complaining of pain with urination for which a urinalysis and urine culture will be ordered. She also complains pain in her back. At this time, discharge may occur tomorrow if the [place] dialysis center has a Tuesday opening for her to start there. manager housekeeping is following closely to make arrangements. Objective - Vital Signs Vital signs: Vital Signs Temp 98.2 F 07/07/17 07:00 Pulse 63 07/07/17 07:00 Resp 18 07/07/17 07:00 BP 150/80 07/07/17 07:00 Pulse Ox 95 07/07/17 07:00 Intake & Output 07/06/17 07/07/17 07/07/17 18:59 06:59 18:59 Intake Total 240 Output Total 1 Balance 240 -1 Weight 73.5 kg Intake: Oral 240 Output: Stool 1 Other: Voiding Method Toilet Toilet # Voids 3 2 # Bowel Movements 1 - Exam General appearance: average body habitus, mild distress - EENT Eyes: anicteric sclerae, EOMI, PERRLA, no ptosis, no scleral icterus, normal appearance ENT: hearing grossly normal, NA/AT, normal oropharynx, no thrush Ears: bilateral: normal - Neck Neck: no lymphadenopathy, normal ROM, no rigidity, no stridor, no thyromegaly Carotids: bilateral: upstroke normal Thyroid: bilateral: normal size - Respiratory Respiratory: bilateral: diminished, rhonchi, prolonged expiration, negative: dullness, rales, wheezing - Cardiovascular Rhythm: regular Heart sounds: normal: S1, S2 Abnormal Heart Sounds: systolic murmur, no rub, S3 Gallop, no click - Gastrointestinal General gastrointestinal: normal bowel sounds, soft, no splenomegaly, no tenderness, no umbilical hernia, no ventral hernia - Integumentary Integumentary: normal, normal turgor - Neurologic Neurologic: CNII-XII intact - Musculoskeletal Musculoskeletal: generalized weakness - Psychiatric Psychiatric: A&O x's 3, appropriate affect, intact judgment & insight - Labs CBC & Chem 7: 07/07/17 07:04 07/07/17 07:04 Labs: Abnormal Lab Results - Last 24 Hours (Table) 07/06/17 07/06/17 07/06/17 Range/Units 07:22 07:22 11:14 RBC 2.61 L (3.80-5.40) m/uL Hgb 8.6 L (11.4-16.0) gm/dL Hct 30.0 L (34.0-46.0) % MCV 115.2 H (80.0-100.0) fL MCHC 28.7 L (31.0-37.0) g/dL RDW 17.1 H (11.5-15.5) % Sodium 128 L (137-145) mmol/L Potassium 5.2 H (3.5-5.1) mmol/L BUN 57 H (7-17) mg/dL Creatinine 2.63 H (0.52-1.04) mg/dL Glucose 243 H (74-99) mg/dL POC Glucose (mg/dL) 226 H (75-99) mg/dL Calcium 6.7 L (8.4-10.2) mg/dL Total Bilirubin 0.1 L (0.2-1.3) mg/dL AST 235 H (14-36) U/L ALT 145 H (9-52) U/L Alkaline Phosphatase 254 H (38-126) U/L Total Protein 4.8 L (6.3-8.2) g/dL Albumin 2.2 L (3.5-5.0) g/dL 07/06/17 07/06/17 07/06/17 Range/Units 15:52 16:58 20:44 RBC (3.80-5.40) m/uL Hgb (11.4-16.0) gm/dL Hct (34.0-46.0) % MCV (80.0-100.0) fL MCHC (31.0-37.0) g/dL RDW (11.5-15.5) % Sodium (137-145) mmol/L Potassium (3.5-5.1) mmol/L BUN (7-17) mg/dL Creatinine (0.52-1.04) mg/dL Glucose (74-99) mg/dL POC Glucose (mg/dL) 74 L 70 L 106 H (75-99) mg/dL Calcium (8.4-10.2) mg/dL Total Bilirubin (0.2-1.3) mg/dL AST (14-36) U/L ALT (9-52) U/L Alkaline Phosphatase (38-126) U/L Total Protein (6.3-8.2) g/dL Albumin (3.5-5.0) g/dL 07/07/17 07/07/17 07/07/17 Range/Units 07:01 07:04 07:04 RBC 2.62 L (3.80-5.40) m/uL Hgb 8.7 L (11.4-16.0) gm/dL Hct 30.3 L (34.0-46.0) % MCV 115.7 H (80.0-100.0) fL MCHC 28.8 L (31.0-37.0) g/dL RDW 17.6 H (11.5-15.5) % Sodium 129 L (137-145) mmol/L Potassium (3.5-5.1) mmol/L BUN 48 H (7-17) mg/dL Creatinine 2.39 H (0.52-1.04) mg/dL Glucose 446 H (74-99) mg/dL POC Glucose (mg/dL) 395 H (75-99) mg/dL Calcium 6.9 L (8.4-10.2) mg/dL Total Bilirubin (0.2-1.3) mg/dL AST 586 H (14-36) U/L ALT 232 H (9-52) U/L Alkaline Phosphatase 366 H (38-126) U/L Total Protein 4.8 L (6.3-8.2) g/dL Albumin 2.2 L (3.5-5.0) g/dL Assessment and Plan Plan: 1. Anasarca with acute on chronic diastolic heart failure with significant fluid overload. Continue hemodialysis, continue patient on Lasix 80 mg orally twice every day, continue Zaroxolyn 5 mg orally once every day, monitor the patient's electrolytes and regular basis since including magnesium Tanner monitor the patient with, continue fluid restriction, patient will continue dialysis on a daily basis for the next few days. 2. Recent right lower extremity DVT. Continue Eliquis 5 mg orally twice every day. 3. History of the chronic diastolic heart failure. Continue treatment as in paragraph #1 4. Diabetes mellitus type 2. Continue Levemir 16 units at bedtime along with a sliding scale insulin, continue consistent carbohydrate diet, continue to monitor the patient blood glucose before each meal and at bedtime. 5. Diabetic polyneuropathy. Continue patient on gabapentin 300 mg orally twice every day. 6. Hypothyroidism. Continue levothyroxine 200 mg orally once every day. 7. Vitamin D deficiency. Continue patient on vitamin D supplement. 8. Hypertension and hypertensive cardiovascular disease. Continue patient on Lopressor 25 mg orally twice every day. 9. Secondary hyperparathyroidism. Stable at this time. 10. Moderate to severe protein calorie medication. Continue with current protein supplement. 11. Anxiety disorder. Stable. 12. Depressive disorder. Patient will need to be started on antidepressant. 13. Medical debility. Physical therapy evaluation patient will require physical therapy and outpatient therapy. 14. Chronic diarrhea. Continue patient on Questran and loperamide as needed. 15. DVT prophylaxis. Continue Eliquis 5 mg orally twice every day. 16. GI prophylaxis. Continue Pepcid 20 mg orally once every day. 17. Hyponatremia secondary to hypervolemia. Continue aggressive diuresis and daily hemodialysis. 18. Full code Discharge plan: Patient is planning to go home versus back to the [facility]. She is in need of a hospital bed as positioning is not obtainable with an ordinary bed to alleviate pain and we are also planning to order a wheelchair for her. Case management is following and will make sure patient has an appointment at the [place] dialysis center for Tuesday prior to discharge.. Impression and plan of care have been directed as dictated by the signing physician. Ave Jin nurse practitioner acting as scribe for signing physician.
[2017-07-07] MEDS: ONDANSETRON 4 MG/2 ML VIAL IVP PRN (14:49)
[2017-07-07 16:08] LABS: Appearance,Urine Cloudy (Clear); Bilirubin,Urine 1+ (Negative); Glucose,Urine (UA) 2+ (Negative); Ketones,Urine Negative (Negative); Leukocyte Esterase,Urine Negative (Negative); Nitrite,Urine Negative (Negative); PH, Urine 5.5 (5.0-8.0); Particle Count 6643; Protein,Urine 3+ (Negative); Specific Gravity,Urine 1.015 (1.001-1.035); Squamous Epithelial Cell,Urine 2 /hpf (0-4); UA Billing (MACRO vs. MICRO) MICRO; WBC,Urine 3 /hpf (0-5)
[2017-07-07 17:04] LABS: Glucose,Whole Blood 39 mg/dL (75-99)
[2017-07-07 17:26] LABS: Glucose,Whole Blood 51 mg/dL (75-99)
[2017-07-07 17:26] LABS: Glucose,Whole Blood 73 mg/dL (75-99)
[2017-07-07] MEDS ORDERED: INSULIN LISPRO (humaLOG) 300 UNIT/3 ML VIAL SQ SCH (17:33)
[2017-07-07 21:16] LABS: Glucose,Whole Blood 58 mg/dL (75-99)
[2017-07-07 21:16] LABS: Glucose,Whole Blood 70 mg/dL (75-99)
[2017-07-07 21:55] LABS: Glucose,Whole Blood 180 mg/dL (75-99)
[2017-07-07 21:55] LABS: Glucose,Whole Blood 229 mg/dL (75-99)
[2017-07-08] MEDS: HYDROmorphone 0.5 MG/0.5 ML SYRINGE IVP PRN ×6 (02:34→21:31)
[2017-07-08] MEDS: INSULIN LISPRO (humaLOG) 300 UNIT/3 ML VIAL SQ SCH ×7 (07:42→20:29)
[2017-07-08 07:43] LABS: Glucose,Whole Blood 405 mg/dL (75-99)
[2017-07-08] MEDS: INSULIN DETEMIR 100 UNIT/ML 10 ML VIAL SQ SCH (07:54)
[2017-07-08 08:14] LABS: Anisocytosis Slight; CH 33.8; CHCM 30.1; HCT 31.9 % (34.0-46.0); HDW 2.53; HGB 9.3 gm/dL (11.4-16.0); Hypochromasia Marked; MCH 33.1 pg (25.0-35.0); MCHC 29.2 g/dL (31.0-37.0); MCV 113.4 fL (80.0-100.0); Macrocytosis Marked; Mean Platelet Volume 8.2; RBC 2.81 m/uL (3.80-5.40); RDW 17.2 % (11.5-15.5); WBC 6.6 k/uL (3.8-10.6)
[2017-07-08 08:24] LABS: Calcium 7.5 mg/dL (8.4-10.2); Potassium 3.7 mmol/L (3.5-5.1); Total Bilirubin 0.2 mg/dL (0.2-1.3); Total Protein 5.6 g/dL (6.3-8.2)
[2017-07-08] MEDS: METOPROLOL TARTRATE 25 MG TAB PO SCH ×2 (09:35→20:23)
[2017-07-08] MEDS: FUROSEMIDE 80 MG TAB PO SCH ×3 (09:35→21:32)
[2017-07-08] MEDS: APIXABAN 5 MG TAB PO SCH ×2 (09:35→20:23)
[2017-07-08] MEDS: B COMPLEX-VIT C-VIT E-ZINC 1 EACH TAB PO SCH (09:35)
[2017-07-08] MEDS: GABAPENTIN 300 MG CAP PO SCH ×2 (09:35→20:23)
[2017-07-08] MEDS: METOLAZONE 5 MG TAB PO SCH (09:35)
[2017-07-08] MEDS: LEVOTHYROXINE 100 MCG TAB PO SCH (09:35)
[2017-07-08] MEDS: FAMOTIDINE 20 MG TAB PO SCH (09:35)
[2017-07-08] MEDS: AMMONIUM LACTATE 12% LOTION 225 GM BTL TOPICAL SCH ×2 (09:36→20:23)
[2017-07-08] MEDS ORDERED: FLUCONAZOLE 150 MG TAB PO STA (10:04)
[2017-07-08 11:56] LABS: Glucose,Whole Blood 177 mg/dL (75-99)
--- NOTE | 2017-07-08 12:47 | P.PN ---
Subjective Patient is seen in follow-up for end-stage renal disease. She is maintained on hemodialysis on a Tuesday schedule via right chest permacath. She has a maturing left upper extremity AV fistula. Patient was complaining of significant swelling in her lower extremities and came to the hospital. She's been undergoing daily dialysis with 4-5 L of ultrafiltration. She's been tolerating the treatments well. Swelling is gradually improving. Oral intake is fair. No vomiting or diarrhea. No active complaints at this time. Vital signs are stable. General: The patient appeared well nourished and normally developed. HEENT: Head exam is unremarkable. Neck is without jugular venous distension. LUNGS: Lungs are clear to auscultation and percussion. Breath sounds decreased. HEART: Rate and Rhythm are regular. First and second heart sounds normal. No murmurs, rubs or gallops. ABDOMEN: Abdominal exam reveals normal bowel sounds. Non-tender and non- distended. EXTREMITITES: 2+ edema. Objective - Vital Signs Vital signs: Vital Signs Temp 98.2 F 07/08/17 07:00 Pulse 64 07/08/17 08:00 Resp 18 07/08/17 08:00 BP 154/82 07/08/17 07:00 Pulse Ox 94 L 07/08/17 07:00 Intake & Output 07/07/17 07/08/17 07/08/17 18:59 06:59 18:59 Intake Total 600 Output Total 1 1 Balance 599 -1 Weight 71 kg Intake: Oral 600 Output: Stool 1 1 Other: Voiding Method Toilet Toilet Toilet # Voids 2 1 # Bowel Movements 1 - Labs CBC & Chem 7: 07/08/17 07:35 07/08/17 07:35 Labs: Abnormal Lab Results - Last 24 Hours (Table) 07/07/17 07/07/17 07/07/17 Range/Units 15:10 16:53 17:07 RBC (3.80-5.40) m/uL Hgb (11.4-16.0) gm/dL Hct (34.0-46.0) % MCV (80.0-100.0) fL MCHC (31.0-37.0) g/dL RDW (11.5-15.5) % Sodium (137-145) mmol/L Chloride (98-107) mmol/L BUN (7-17) mg/dL Creatinine (0.52-1.04) mg/dL Glucose (74-99) mg/dL POC Glucose (mg/dL) 39 L 51 L (75-99) mg/dL Calcium (8.4-10.2) mg/dL AST (14-36) U/L ALT (9-52) U/L Alkaline Phosphatase (38-126) U/L Total Protein (6.3-8.2) g/dL Albumin (3.5-5.0) g/dL Urine Appearance Cloudy H (Clear) Urine Protein 3+ H (Negative) Urine Glucose (UA) 2+ H (Negative) Urine Bilirubin 1+ H (Negative) Hyaline Casts 9 H (0-2) /lpf 07/07/17 07/07/17 07/07/17 Range/Units 17:17 20:21 20:42 RBC (3.80-5.40) m/uL Hgb (11.4-16.0) gm/dL Hct (34.0-46.0) % MCV (80.0-100.0) fL MCHC (31.0-37.0) g/dL RDW (11.5-15.5) % Sodium (137-145) mmol/L Chloride (98-107) mmol/L BUN (7-17) mg/dL Creatinine (0.52-1.04) mg/dL Glucose (74-99) mg/dL POC Glucose (mg/dL) 73 L 58 L 70 L (75-99) mg/dL Calcium (8.4-10.2) mg/dL AST (14-36) U/L ALT (9-52) U/L Alkaline Phosphatase (38-126) U/L Total Protein (6.3-8.2) g/dL Albumin (3.5-5.0) g/dL Urine Appearance (Clear) Urine Protein (Negative) Urine Glucose (UA) (Negative) Urine Bilirubin (Negative) Hyaline Casts (0-2) /lpf 07/07/17 07/07/17 07/08/17 Range/Units 21:52 21:53 07:17 RBC (3.80-5.40) m/uL Hgb (11.4-16.0) gm/dL Hct (34.0-46.0) % MCV (80.0-100.0) fL MCHC (31.0-37.0) g/dL RDW (11.5-15.5) % Sodium (137-145) mmol/L Chloride (98-107) mmol/L BUN (7-17) mg/dL Creatinine (0.52-1.04) mg/dL Glucose (74-99) mg/dL POC Glucose (mg/dL) 229 H 180 H 405 H (75-99) mg/dL Calcium (8.4-10.2) mg/dL AST (14-36) U/L ALT (9-52) U/L Alkaline Phosphatase (38-126) U/L Total Protein (6.3-8.2) g/dL Albumin (3.5-5.0) g/dL Urine Appearance (Clear) Urine Protein (Negative) Urine Glucose (UA) (Negative) Urine Bilirubin (Negative) Hyaline Casts (0-2) /lpf 07/08/17 07/08/17 07/08/17 Range/Units 07:35 07:35 11:21 RBC 2.81 L (3.80-5.40) m/uL Hgb 9.3 L (11.4-16.0) gm/dL Hct 31.9 L (34.0-46.0) % MCV 113.4 H (80.0-100.0) fL MCHC 29.2 L (31.0-37.0) g/dL RDW 17.2 H (11.5-15.5) % Sodium 130 L (137-145) mmol/L Chloride 96 L (98-107) mmol/L BUN 27 H (7-17) mg/dL Creatinine 1.56 H (0.52-1.04) mg/dL Glucose 339 H (74-99) mg/dL POC Glucose (mg/dL) 177 H (75-99) mg/dL Calcium 7.5 L (8.4-10.2) mg/dL AST 295 H (14-36) U/L ALT 231 H (9-52) U/L Alkaline Phosphatase 421 H (38-126) U/L Total Protein 5.6 L (6.3-8.2) g/dL Albumin 2.6 L (3.5-5.0) g/dL Urine Appearance (Clear) Urine Protein (Negative) Urine Glucose (UA) (Negative) Urine Bilirubin (Negative) Hyaline Casts (0-2) /lpf Microbiology - Last 24 Hours (Table) 07/07/17 15:10 Urine Culture - Preliminary Urine,Voided Assessment and Plan Plan: Assessment: #1. End-stage renal disease maintained on hemodialysis on a Tuesday schedule via right chest permacath. She has a maturing left upper extremity AV fistula. #2. Volume overload undergoing daily dialysis with ultrafiltration. #3. Hypocalcemia secondary to hypoalbuminemia. Her corrected calcium is in the normal range. #4. Insulin-dependent diabetes mellitus. #5. Anemia of chronic kidney disease maintained on Aranesp. #6. Chronic kidney disease mineral bone disease maintained on Tums. #7. Hypervolemic hyponatremia improving with ultrafiltration. Plan: Underwent hemodialysis today with goal 5 L UF- tolerated it well. Ultrafiltration only tomorrow. Potential discharge tomorrow if outpatient dialysis at the [facility] set up. Maintain low salt and fluid restricted diet.
[2017-07-08] MEDS: ONDANSETRON 4 MG/2 ML VIAL IVP PRN (13:08)
--- NOTE | 2017-07-08 13:38 | P.PN ---
Subjective Progress Note Date: 07/08/17 This is a 51-year-old female patient of [facility] with past medical history of end-stage renal disease on dialysis 3 times weekly, Tuesday and Tuesday, diabetes mellitus, diabetic neuropathy, hypertension and hypertensive cardiovascular disease, hyperlipidemia, hypothyroidism, morbid obesity status post gastric bypass, depression, was recently diagnosed of having a right leg DVT that was diagnosed at [facility] back in 06/19/2017 after she was admitted to the hospital because of weight gain and pleural effusion patient at that time started on Eliquis 5 mg orally twice every day along with a VQ scan that did not show any evidence of acute pulmonary embolism, patient subsequent he was sent to [facility] for physical therapy rehabilitation, however the patient was not getting appropriate fluid restriction and she continued to gain a lot of weight over the last few weeks while she was there she was seen by nephrology as an outpatient was recommended for her to go for dialysis on a daily basis until she get dialyzed at least 4 L daily basis, however her dialysis center only strictly does Tuesday and they are in the process of transfer the patient to [facility] for dialysis on a daily basis for at least getting her back to her dry weight. Patient presented to the emergency department at [facility] yesterday because of increased anasarca with increased weight gain that has significantly gone up since she was discharged from [facility] and the patient was seen in consultation by nephrology was recommended for the patient to go on dialysis on a daily basis for the next week. 07/06: Patient is followed by nephrology and for now, hemodialysis as scheduled daily. Lac-Hydrin will be added for dry legs and feet. Patient is requesting Tums. 07/07: Patient is undergoing hemodialysis this morning. She is complaining of pain with urination for which a urinalysis and urine culture will be ordered. She also complains pain in her back. At this time, discharge may occur tomorrow if the [facility] dialysis center has a Tuesday opening for her to start there. manager engagement is following closely to make arrangements. 07/08: Patient is scheduled for hemodialysis today. She is unable to be scheduled as an outpatient on Tuesday. Anticipate patient will stay over the weekend and be set up for her first or hearing dialysis on [place]. Patient had a drop in her blood sugar to 39 and Levemir was decreased to 12 units as well as Humalog was decreased to 3 units and this morning patient is 405. His blood sugars are lower this afternoon, may change Levemir to twice daily. Objective - Vital Signs Vital signs: Vital Signs Temp 98.2 F 07/08/17 07:00 Pulse 64 07/08/17 07:00 Resp 18 07/08/17 07:00 BP 154/82 07/08/17 07:00 Pulse Ox 94 L 07/08/17 07:00 Intake & Output 07/07/17 07/08/17 07/08/17 18:59 06:59 18:59 Intake Total 600 Output Total 1 Balance 599 Weight 71 kg Intake: Oral 600 Output: Stool 1 Other: Voiding Method Toilet Toilet # Voids 2 1 # Bowel Movements 1 - Exam General appearance: average body habitus, mild distress - EENT Eyes: anicteric sclerae, EOMI, PERRLA, no ptosis, no scleral icterus, normal appearance ENT: hearing grossly normal, NA/AT, normal oropharynx, no thrush Ears: bilateral: normal - Neck Neck: no lymphadenopathy, normal ROM, no rigidity, no stridor, no thyromegaly Carotids: bilateral: upstroke normal Thyroid: bilateral: normal size - Respiratory Respiratory: bilateral: diminished, rhonchi, prolonged expiration, negative: dullness, rales, wheezing - Cardiovascular Rhythm: regular Heart sounds: normal: S1, S2 Abnormal Heart Sounds: systolic murmur, no rub, S3 Gallop, no click - Gastrointestinal General gastrointestinal: normal bowel sounds, soft, no splenomegaly, no tenderness, no umbilical hernia, no ventral hernia - Integumentary Integumentary: normal, normal turgor - Neurologic Neurologic: CNII-XII intact - Musculoskeletal Musculoskeletal: generalized weakness - Psychiatric Psychiatric: A&O x's 3, appropriate affect, intact judgment & insight - Labs CBC & Chem 7: 07/08/17 07:35 07/08/17 07:35 Labs: Abnormal Lab Results - Last 24 Hours (Table) 07/07/17 07/07/17 07/07/17 Range/Units 07:04 11:16 15:10 RBC (3.80-5.40) m/uL Hgb (11.4-16.0) gm/dL Hct (34.0-46.0) % MCV (80.0-100.0) fL MCHC (31.0-37.0) g/dL RDW (11.5-15.5) % Sodium (137-145) mmol/L Chloride (98-107) mmol/L BUN (7-17) mg/dL Creatinine (0.52-1.04) mg/dL Glucose (74-99) mg/dL POC Glucose (mg/dL) 234 H (75-99) mg/dL Calcium (8.4-10.2) mg/dL Phosphorus 5.3 H (2.5-4.5) mg/dL AST (14-36) U/L ALT (9-52) U/L Alkaline Phosphatase (38-126) U/L Total Protein (6.3-8.2) g/dL Albumin (3.5-5.0) g/dL Urine Appearance Cloudy H (Clear) Urine Protein 3+ H (Negative) Urine Glucose (UA) 2+ H (Negative) Urine Bilirubin 1+ H (Negative) Hyaline Casts 9 H (0-2) /lpf 07/07/17 07/07/17 07/07/17 Range/Units 16:53 17:07 17:17 RBC (3.80-5.40) m/uL Hgb (11.4-16.0) gm/dL Hct (34.0-46.0) % MCV (80.0-100.0) fL MCHC (31.0-37.0) g/dL RDW (11.5-15.5) % Sodium (137-145) mmol/L Chloride (98-107) mmol/L BUN (7-17) mg/dL Creatinine (0.52-1.04) mg/dL Glucose (74-99) mg/dL POC Glucose (mg/dL) 39 L 51 L 73 L (75-99) mg/dL Calcium (8.4-10.2) mg/dL Phosphorus (2.5-4.5) mg/dL AST (14-36) U/L ALT (9-52) U/L Alkaline Phosphatase (38-126) U/L Total Protein (6.3-8.2) g/dL Albumin (3.5-5.0) g/dL Urine Appearance (Clear) Urine Protein (Negative) Urine Glucose (UA) (Negative) Urine Bilirubin (Negative) Hyaline Casts (0-2) /lpf 07/07/17 07/07/17 07/07/17 Range/Units 20:21 20:42 21:52 RBC (3.80-5.40) m/uL Hgb (11.4-16.0) gm/dL Hct (34.0-46.0) % MCV (80.0-100.0) fL MCHC (31.0-37.0) g/dL RDW (11.5-15.5) % Sodium (137-145) mmol/L Chloride (98-107) mmol/L BUN (7-17) mg/dL Creatinine (0.52-1.04) mg/dL Glucose (74-99) mg/dL POC Glucose (mg/dL) 58 L 70 L 229 H (75-99) mg/dL Calcium (8.4-10.2) mg/dL Phosphorus (2.5-4.5) mg/dL AST (14-36) U/L ALT (9-52) U/L Alkaline Phosphatase (38-126) U/L Total Protein (6.3-8.2) g/dL Albumin (3.5-5.0) g/dL Urine Appearance (Clear) Urine Protein (Negative) Urine Glucose (UA) (Negative) Urine Bilirubin (Negative) Hyaline Casts (0-2) /lpf 07/07/17 07/08/17 07/08/17 Range/Units 21:53 07:17 07:35 RBC 2.81 L (3.80-5.40) m/uL Hgb 9.3 L (11.4-16.0) gm/dL Hct 31.9 L (34.0-46.0) % MCV 113.4 H (80.0-100.0) fL MCHC 29.2 L (31.0-37.0) g/dL RDW 17.2 H (11.5-15.5) % Sodium (137-145) mmol/L Chloride (98-107) mmol/L BUN (7-17) mg/dL Creatinine (0.52-1.04) mg/dL Glucose (74-99) mg/dL POC Glucose (mg/dL) 180 H 405 H (75-99) mg/dL Calcium (8.4-10.2) mg/dL Phosphorus (2.5-4.5) mg/dL AST (14-36) U/L ALT (9-52) U/L Alkaline Phosphatase (38-126) U/L Total Protein (6.3-8.2) g/dL Albumin (3.5-5.0) g/dL Urine Appearance (Clear) Urine Protein (Negative) Urine Glucose (UA) (Negative) Urine Bilirubin (Negative) Hyaline Casts (0-2) /lpf 07/08/17 Range/Units 07:35 RBC (3.80-5.40) m/uL Hgb (11.4-16.0) gm/dL Hct (34.0-46.0) % MCV (80.0-100.0) fL MCHC (31.0-37.0) g/dL RDW (11.5-15.5) % Sodium 130 L (137-145) mmol/L Chloride 96 L (98-107) mmol/L BUN 27 H (7-17) mg/dL Creatinine 1.56 H (0.52-1.04) mg/dL Glucose 339 H (74-99) mg/dL POC Glucose (mg/dL) (75-99) mg/dL Calcium 7.5 L (8.4-10.2) mg/dL Phosphorus (2.5-4.5) mg/dL AST 295 H (14-36) U/L ALT 231 H (9-52) U/L Alkaline Phosphatase 421 H (38-126) U/L Total Protein 5.6 L (6.3-8.2) g/dL Albumin 2.6 L (3.5-5.0) g/dL Urine Appearance (Clear) Urine Protein (Negative) Urine Glucose (UA) (Negative) Urine Bilirubin (Negative) Hyaline Casts (0-2) /lpf Microbiology - Last 24 Hours (Table) 07/07/17 15:10 Urine Culture - Preliminary Urine,Voided Assessment and Plan Plan: 1. Anasarca with acute on chronic diastolic heart failure with significant fluid overload. Continue hemodialysis, continue patient on Lasix 80 mg orally three times every day, continue Zaroxolyn 5 mg orally once every day, monitor the patient's electrolytes and regular basis since including magnesium, continue fluid restriction, patient will continue dialysis per nephrology. 2. Recent right lower extremity DVT. Continue Eliquis 5 mg orally twice every day. 3. History of the chronic diastolic heart failure. Continue treatment as in paragraph #1 4. Diabetes mellitus type 2, insulin requiring, uncontrolled. Continue Levemir 12 units at bedtime along with Humalog 3 units with meals and a sliding scale insulin, continue consistent carbohydrate diet, continue to monitor the patient blood glucose before each meal and at bedtime. 5. Diabetic polyneuropathy. Continue patient on gabapentin 300 mg orally twice every day. 6. Hypothyroidism. Continue levothyroxine 200 mg orally once every day. 7. Vitamin D deficiency. Continue patient on vitamin D supplement. 8. Hypertension and hypertensive cardiovascular disease. Continue patient on Lopressor 25 mg orally twice every day. 9. Secondary hyperparathyroidism. Stable at this time. 10. Moderate to severe protein calorie medication. Continue with current protein supplement. 11. Anxiety disorder. Stable. 12. Depressive disorder. Patient will need to be started on antidepressant. 13. Medical debility. Physical therapy evaluation patient will require physical therapy and outpatient therapy. 14. Chronic diarrhea. Continue patient on Questran and loperamide as needed. 15. DVT prophylaxis. Continue Eliquis 5 mg orally twice every day. 16. GI prophylaxis. Continue Pepcid 20 mg orally once every day. 17. Hyponatremia secondary to hypervolemia. Continue aggressive diuresis and daily hemodialysis. 18. Full code Discharge plan: Patient is planning to go home versus back to the [facility]. She is in need of a hospital bed as positioning is not obtainable with an ordinary bed to alleviate pain and we are also planning to order a wheelchair for her. Impression and plan of care have been directed as dictated by the signing physician. Ave Jin nurse practitioner acting as scribe for signing physician.
[2017-07-08 14:24] LABS: Glucose,Whole Blood 89 mg/dL (75-99)
[2017-07-08 17:57] LABS: Glucose,Whole Blood 107 mg/dL (75-99)
[2017-07-08 20:31] LABS: Glucose,Whole Blood 233 mg/dL (75-99)
[2017-07-09] MEDS: HYDROmorphone 0.5 MG/0.5 ML SYRINGE IVP PRN ×4 (00:52→11:53)
[2017-07-09 07:46] LABS: Anisocytosis Slight; CH 33.1; CHCM 29.4; HCT 29.7 % (34.0-46.0); HDW 2.56; HGB 8.7 gm/dL (11.4-16.0); Hypochromasia Marked; MCHC 29.1 g/dL (31.0-37.0); Macrocytosis Marked; Mean Platelet Volume 7.8; RBC 2.62 m/uL (3.80-5.40); RDW 16.5 % (11.5-15.5); WBC 5.6 k/uL (3.8-10.6)
[2017-07-09 07:51] LABS: MCV 113.3 fL (80.0-100.0)
[2017-07-09 07:58] LABS: Calcium 7.4 mg/dL (8.4-10.2); Potassium 4.9 mmol/L (3.5-5.1); Total Bilirubin 0.2 mg/dL (0.2-1.3)
[2017-07-09 08:06] LABS: Glucose,Whole Blood 471 mg/dL (75-99)
[2017-07-09 08:06] LABS: Glucose,Whole Blood 488 mg/dL (75-99)
[2017-07-09] MEDS: INSULIN LISPRO (humaLOG) 300 UNIT/3 ML VIAL SQ SCH ×4 (08:15→11:58)
[2017-07-09] MEDS: FUROSEMIDE 80 MG TAB PO SCH (08:18)
[2017-07-09] MEDS: APIXABAN 5 MG TAB PO SCH (08:18)
[2017-07-09] MEDS: FAMOTIDINE 20 MG TAB PO SCH (08:18)
[2017-07-09] MEDS: B COMPLEX-VIT C-VIT E-ZINC 1 EACH TAB PO SCH (08:19)
[2017-07-09] MEDS: LEVOTHYROXINE 100 MCG TAB PO SCH (08:19)
[2017-07-09] MEDS: GABAPENTIN 300 MG CAP PO SCH (08:19)
[2017-07-09] MEDS: METOPROLOL TARTRATE 25 MG TAB PO SCH (08:20)
[2017-07-09] MEDS: AMMONIUM LACTATE 12% LOTION 225 GM BTL TOPICAL SCH (08:20)
[2017-07-09] MEDS: METOLAZONE 5 MG TAB PO SCH (08:21)
[2017-07-09] MEDS: INSULIN DETEMIR 100 UNIT/ML 10 ML VIAL SQ SCH (08:31)
[2017-07-09 09:00] VITALS: PULSE 64; RESP 18; TEMP 98.5
--- NOTE | 2017-07-09 10:02 | P.DS ---
Providers Date of admission: 07/04/17 22:00 Attending physician: Ernst Gipson Consults: 07/04/17 22:00 Consult Physician Stat Consulting Provider: Cathy Johnson Consult Reason/Comments: End-stage liver disease, pedal edema Do you want consulting provider notified?: Yes Primary care physician: Ernst Gipson Hospital Course: This is 51 years old female with past medical history significant for end-stage renal disease on hemodialysis presents to the hospital with worsening anasarca and fluid overloaded status. Patient felt to have diastolic heart failure exacerbation was started on aggressive dialysis course by nephrology and her fluid status improved. Patient was up ambulating in the guadarrama on her own without shortness of breath and tolerating diet without difficulty felt stable from the medical standpoint and was discharged home to follow-up with her primary care physician on Tuesday and with has dialysis scheduled for Tuesday and Tuesday plan discussed with the breakfast and room attendant at the bedside and both patient and breakfast and room attendant agreeable to the current treatment plan. Patient Condition at Discharge: Stable Plan - Discharge Summary New Discharge Prescriptions: No Action Gabapentin [Neurontin] 300 mg PO BID Loperamide HCl [Loperamide] 2 mg PO Q6H PRN PRN Reason: Diarrhea Furosemide [Lasix] 80 mg PO TID Sodium Bicarbonate 650 mg PO BID INSULIN LISPRO (HumaLOG) [HumaLOG] 8 unit SQ TID Amino Acids/Protein Hydrolys [Pro-Stat Supplement] 30 ml PO BID Metoprolol Tartrate [Lopressor] 25 mg PO BID Metolazone [Zaroxolyn] 5 mg PO DAILY Apixaban [Eliquis] 5 mg PO BID Potassium Chloride ER [K-Dur 20] 20 meq PO DAILY Levothyroxine Sodium [Synthroid] 200 mcg PO DAILY Vitamin B Complex 1 cap PO DAILY Insulin Detemir [Levemir] 16 unit SQ DAILY Famotidine 20 mg PO DAILY Ondansetron HCl [Zofran] 4 mg PO Q6H PRN PRN Reason: Nausea Discharge Medication List Gabapentin [Neurontin] 300 mg PO BID 06/08/16 [History] Amino Acids/Protein Hydrolys [Pro-Stat Supplement] 30 ml PO BID 07/04/17 [ History] Apixaban [Eliquis] 5 mg PO BID 07/04/17 [History] Famotidine 20 mg PO DAILY 07/04/17 [History] Furosemide [Lasix] 80 mg PO TID 07/04/17 [History] INSULIN LISPRO (HumaLOG) [HumaLOG] 8 unit SQ TID 07/04/17 [History] Insulin Detemir [Levemir] 16 unit SQ DAILY 07/04/17 [History] Levothyroxine Sodium [Synthroid] 200 mcg PO DAILY 07/04/17 [History] Loperamide HCl [Loperamide] 2 mg PO Q6H PRN 07/04/17 [History] Metolazone [Zaroxolyn] 5 mg PO DAILY 07/04/17 [History] Metoprolol Tartrate [Lopressor] 25 mg PO BID 07/04/17 [History] Ondansetron HCl [Zofran] 4 mg PO Q6H PRN 07/04/17 [History] Potassium Chloride ER [K-Dur 20] 20 meq PO DAILY 07/04/17 [History] Sodium Bicarbonate 650 mg PO BID 07/04/17 [History] Vitamin B Complex 1 cap PO DAILY 07/04/17 [History] Follow up Appointment(s)/Referral(s): Ernst Gipson MD [Primary Care Provider] - 1 Week Ayla Fry MD [STAFF PHYSICIAN] - 1 Week [facility] Visiting Nurse, [NON-STAFF] - 1 Week Activity/Diet/Wound Care/Special Instructions: [facility] - [phone] - will be delivering your equipment on Tuesday. Hemodialysis at [facility] - Tuesday, Tuesday, Tuesday 11:30 am. - Report at 11:00 a.m. on Wednesday 07/11.
[2017-07-09 11:07] VITALS: BP 131/76
--- NOTE | 2017-07-09 11:11 | P.PN ---
Subjective Patient is seen in follow-up for end-stage renal disease. She is maintained on hemodialysis on a Tuesday schedule via right chest permacath. She has a maturing left upper extremity AV fistula. Patient was complaining of significant swelling in her lower extremities and came to the hospital. She's been undergoing daily dialysis with 4-5 L of ultrafiltration. She's been tolerating the treatments well. Swelling is gradually improving. Oral intake is fair. No vomiting or diarrhea. she does admit to dysuria. Urine culture is positive for gram-negative bacilli. Vital signs are stable. General: The patient appeared well nourished and normally developed. HEENT: Head exam is unremarkable. Neck is without jugular venous distension. LUNGS: Lungs are clear to auscultation and percussion. Breath sounds decreased. HEART: Rate and Rhythm are regular. First and second heart sounds normal. No murmurs, rubs or gallops. ABDOMEN: Abdominal exam reveals normal bowel sounds. Non-tender and non- distended. EXTREMITITES: 2+ edema. Objective - Vital Signs Vital signs: Vital Signs Temp 98.5 F 07/09/17 07:00 Pulse 64 07/09/17 07:00 Resp 18 07/09/17 07:00 BP 131/76 07/09/17 10:20 Pulse Ox 97 07/09/17 07:00 Intake & Output 07/08/17 07/09/17 07/09/17 18:59 06:59 18:59 Intake Total 650 740 Output Total 3 2 Balance 647 738 Weight 71 kg 69.5 kg Intake: Oral 650 740 Output: Stool 3 2 Other: Voiding Method Toilet Toilet # Voids 2 0 - Labs CBC & Chem 7: 07/09/17 07:02 07/09/17 07:02 Labs: Abnormal Lab Results - Last 24 Hours (Table) 07/08/17 07/08/17 07/08/17 Range/Units 11:21 17:39 20:29 RBC (3.80-5.40) m/uL Hgb (11.4-16.0) gm/dL Hct (34.0-46.0) % MCV (80.0-100.0) fL MCHC (31.0-37.0) g/dL RDW (11.5-15.5) % Sodium (137-145) mmol/L Chloride (98-107) mmol/L Carbon Dioxide (22-30) mmol/L BUN (7-17) mg/dL Creatinine (0.52-1.04) mg/dL Glucose (74-99) mg/dL POC Glucose (mg/dL) 177 H 107 H 233 H (75-99) mg/dL Calcium (8.4-10.2) mg/dL AST (14-36) U/L ALT (9-52) U/L Alkaline Phosphatase (38-126) U/L Total Protein (6.3-8.2) g/dL Albumin (3.5-5.0) g/dL 07/09/17 07/09/17 07/09/17 Range/Units 07:02 07:02 07:30 RBC 2.62 L (3.80-5.40) m/uL Hgb 8.7 L (11.4-16.0) gm/dL Hct 29.7 L (34.0-46.0) % MCV 113.3 H (80.0-100.0) fL MCHC 29.1 L (31.0-37.0) g/dL RDW 16.5 H (11.5-15.5) % Sodium 127 L (137-145) mmol/L Chloride 97 L (98-107) mmol/L Carbon Dioxide 18 L (22-30) mmol/L BUN 51 H (7-17) mg/dL Creatinine 2.50 H (0.52-1.04) mg/dL Glucose 491 H* (74-99) mg/dL POC Glucose (mg/dL) 471 H (75-99) mg/dL Calcium 7.4 L (8.4-10.2) mg/dL AST 434 H (14-36) U/L ALT 227 H (9-52) U/L Alkaline Phosphatase 388 H (38-126) U/L Total Protein 5.0 L (6.3-8.2) g/dL Albumin 2.3 L (3.5-5.0) g/dL 07/09/17 Range/Units 07:31 RBC (3.80-5.40) m/uL Hgb (11.4-16.0) gm/dL Hct (34.0-46.0) % MCV (80.0-100.0) fL MCHC (31.0-37.0) g/dL RDW (11.5-15.5) % Sodium (137-145) mmol/L Chloride (98-107) mmol/L Carbon Dioxide (22-30) mmol/L BUN (7-17) mg/dL Creatinine (0.52-1.04) mg/dL Glucose (74-99) mg/dL POC Glucose (mg/dL) 488 H (75-99) mg/dL Calcium (8.4-10.2) mg/dL AST (14-36) U/L ALT (9-52) U/L Alkaline Phosphatase (38-126) U/L Total Protein (6.3-8.2) g/dL Albumin (3.5-5.0) g/dL Microbiology - Last 24 Hours (Table) 07/07/17 15:10 Urine Culture - Preliminary Urine,Voided Gram Neg Bacilli Assessment and Plan Plan: Assessment: #1. End-stage renal disease maintained on hemodialysis on a Tuesday schedule via right chest permacath. She has a maturing left upper extremity AV fistula. #2. Volume overload undergoing daily dialysis with ultrafiltration. #3. Hypocalcemia secondary to hypoalbuminemia. Her corrected calcium is in the normal range. #4. Insulin-dependent diabetes mellitus. #5. Anemia of chronic kidney disease maintained on Aranesp. #6. Chronic kidney disease mineral bone disease maintained on Tums. #7. Hypervolemic hyponatremia improving with ultrafiltration. Also component of hypotonicity from hyperglycemia. #8. Urinary tract infection with urine culture positive for gram-negative bacilli. Plan: Currently undergoing ultrafiltration only and tolerating it well. Maintain low salt and fluid restricted diet. Cipro 500 mg daily for 7 days. Potential discharge today.
[2017-07-09 12:02] LABS: Glucose,Whole Blood 256 mg/dL (75-99)
[2017-07-09] MEDS ORDERED: HEPARIN SODIUM,PORCINE 5,000 UNIT/ML 1 ML VIAL ONE (14:00)
[2017-07-09] MEDS: HYDROcodone/APAP 10-325MG 1 EACH TAB PO PRN (14:26)
== END 2017-07-09 14:40 | disposition home or self-care (01) | DRG 291 ==
LOC: EC 17:42 → 5MS5E 22:00
PROVIDERS: ADMIT Internal Medicine; ATTEND Internal Medicine
PROC: 5A1D70Z Performance of Urinary Filtration, Intermittent, Less than 6 Hours Per Day (ICD-10-PCS; principal; 2017-07-05)
DX: I13.2 Hypertensive heart and chronic kidney disease with heart failure and with stage 5 chronic kidney disease, or end stage renal disease (principal); I50.33 Acute on chronic diastolic (congestive) heart failure; E87.2 Acidosis; N18.6 End stage renal disease; N25.81 Secondary hyperparathyroidism of renal origin; E11.22 Type 2 diabetes mellitus with diabetic chronic kidney disease; N39.0 Urinary tract infection, site not specified; E87.1 Hypo-osmolality and hyponatremia; E11.42 Type 2 diabetes mellitus with diabetic polyneuropathy; D63.1 Anemia in chronic kidney disease; E11.65 Type 2 diabetes mellitus with hyperglycemia; E03.9 Hypothyroidism, unspecified; E78.5 Hyperlipidemia, unspecified; E83.51 Hypocalcemia; E87.5 Hyperkalemia; K21.9 Gastro-esophageal reflux disease without esophagitis; F32.9 Major depressive disorder, single episode, unspecified; F41.9 Anxiety disorder, unspecified; M19.90 Unspecified osteoarthritis, unspecified site; J44.9 Chronic obstructive pulmonary disease, unspecified; K52.9 Noninfective gastroenteritis and colitis, unspecified; B96.89 Other specified bacterial agents as the cause of diseases classified elsewhere; E11.319 Type 2 diabetes mellitus with unspecified diabetic retinopathy without macular edema; E73.9 Lactose intolerance, unspecified; Z96.41 Presence of insulin pump (external) (internal); R53.81 Other malaise; Z79.01 Long term (current) use of anticoagulants; Z99.2 Dependence on renal dialysis; Z86.718 Personal history of other venous thrombosis and embolism; Z79.899 Other long term (current) drug therapy; Z79.4 Long term (current) use of insulin; Z82.5 Family history of asthma and other chronic lower respiratory diseases; Z82.61 Family history of arthritis; Z82.49 Family history of ischemic heart disease and other diseases of the circulatory system; Z87.891 Personal history of nicotine dependence; Z98.84 Bariatric surgery status; Z90.710 Acquired absence of both cervix and uterus; Z87.11 Personal history of peptic ulcer disease; Z90.81 Acquired absence of spleen; Z91.040 Latex allergy status; Z90.3 Acquired absence of stomach [part of]
CPT/HCPCS: 36415; 71020; 76705; 80053; 81001; 82550; 82553; 83036; 83735; 84100; 84484; 85025; 85027; 85379; 85610; 85730; 86705; 86706; 87077; 87086; 87186; 87340; 90935; 93005; 96374; 96375; 99285